=== PATIENT | female | born 1950 | race Caucasian/White ===

== ENCOUNTER → 2016-06-08 | Outpatient (CLI) | payer MEDICARE ==
[2016-06-08 14:45] LABS: Anion Gap 20 mmol/L; Blood Urea Nitrogen 36 mg/dL (7-17); Calcium 9.1 mg/dL (8.4-10.2); Carbon Dioxide 29 mmol/L (22-30); Chloride 96 mmol/L (98-107); Glucose 158 mg/dL (74-99); Non-African American GFR(MDRD) 54 (>60 ml/min/1.73 sqM); Sodium 145 mmol/L (137-145)
== END | disposition home or self-care (01) ==
LOC: LABWHC1 13:57
PROVIDERS: ATTEND Internal Medicine Nephrology
DX: N18.2 Chronic kidney disease, stage 2 (mild) (principal)
CPT/HCPCS: 36415; 80048

== ENCOUNTER → 2016-09-05 | Outpatient (CLI) | payer MEDICARE ==
[2016-09-05 10:09] LABS: Appearance,Urine Clear (Clear); Bilirubin,Urine Negative (Negative); Glucose,Urine (UA) Negative (Negative); Ketones,Urine Negative (Negative); Leukocyte Esterase,Urine Moderate (Negative); Nitrite,Urine Negative (Negative); PH, Urine 5.5 (5.0-8.0); Particle Count 2018; Protein,Urine Trace (Negative); RBC,Urine 1 /hpf (0-5); Specific Gravity,Urine 1.016 (1.001-1.035); Squamous Epithelial Cell,Urine 2 /hpf (0-4); UA Billing (MACRO vs. MICRO) MICRO; Urobilinogen,Urine <2.0 mg/dL (<2.0); WBC,Urine 13 /hpf (0-5)
[2016-09-05 10:19] LABS: Basophils # (A) 0.1 k/uL (0-0.2); Basophils % (A) 1 %; CH 30.3; CHCM 32.5; Eosinophils # (A) 0.4 k/uL (0-0.7); Eosinophils % (A) 5 %; HCT 38.1 % (34.0-46.0); HDW 2.62; HGB 12.3 gm/dL (11.4-16.0); Luc # (Auto) 0.23; Luc % (Auto) 3; Lymphocytes # (A) 2.3 k/uL (1.0-4.8); Lymphocytes % (A) 28 %; MCH 30.3 pg (25.0-35.0); MCHC 32.3 g/dL (31.0-37.0); MCV 93.8 fL (80.0-100.0); Mean Platelet Volume 7.1; Monocytes # (A) 0.4 k/uL (0-1.0); Monocytes % (A) 5 %; Neutrophils # (A) 4.7 k/uL (1.3-7.7); Neutrophils % (A) 58 %; RBC 4.07 m/uL (3.80-5.40); RDW 14.1 % (11.5-15.5); WBC 8.1 k/uL (3.8-10.6); WBC (Perox) 8.78
[2016-09-05 13:19] LABS: ALT 31 U/L (9-52); AST 22 U/L (14-36); Alkaline Phosphatase 75 U/L (38-126); Anion Gap 13 mmol/L; Blood Urea Nitrogen 32 mg/dL (7-17); Calcium 9.3 mg/dL (8.4-10.2); Carbon Dioxide 28 mmol/L (22-30); Chloride 101 mmol/L (98-107); Cholesterol 112 mg/dL (<200); Glucose 141 mg/dL (74-99); HDL Cholesterol 39 mg/dL (40-60); Iron 63 ug/dL (37-170); Magnesium 2.4 mg/dL (1.6-2.3); Non-African American GFR(MDRD) 55 (>60 ml/min/1.73 sqM); Phosphorous 4.7 mg/dL (2.5-4.5); Potassium 4.2 mmol/L (3.5-5.1); Sodium 142 mmol/L (137-145); Total Bilirubin 0.6 mg/dL (0.2-1.3); Total Protein 6.8 g/dL (6.3-8.2); Triglycerides 247 mg/dL (<150)
[2016-09-05 13:29] LABS: % Iron Saturation 19.3 % (20-50); Total Iron Binding Capacity 327 ug/dL (265-497)
== END | disposition home or self-care (01) ==
LOC: LABWHC1 08:59
PROVIDERS: ATTEND Internal Medicine Nephrology
DX: N18.2 Chronic kidney disease, stage 2 (mild) (principal); D64.9 Anemia, unspecified; E55.9 Vitamin D deficiency, unspecified; N25.81 Secondary hyperparathyroidism of renal origin; M10.9 Gout, unspecified; N39.0 Urinary tract infection, site not specified; E11.65 Type 2 diabetes mellitus with hyperglycemia
CPT/HCPCS: 36415; 80053; 80061; 81001; 82043; 82306; 82728; 83540; 83550; 83735; 83970; 84100; 84550; 85025

== ENCOUNTER → 2016-09-14 | Outpatient (CLI) | payer MEDICARE ==
--- NOTE | 2016-09-14 13:56 | XR ---
EXAMINATION TYPE: XR Hip Complete RT DATE OF EXAM: 09/14/2016 12:36 PM COMPARISON: NONE HISTORY: Pain TECHNIQUE: 2 views submitted FINDINGS: There is no evidence of erosive change or acute fracture. There is axial narrowing of the joint space . Soft tissue ossification adjacent to the greater trochanter which does demonstrate hypertrophic spu r formation. IMPRESSION: 1. No evidence of acute fracture or dislocation. 2. 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 Correlate for femoral acetabular impingement.
== END ==
LOC: RADXRMAIN 12:09
PROVIDERS: ATTEND Family Medicine
DX: M16.11 Unilateral primary osteoarthritis, right hip (principal)
CPT/HCPCS: 73502

== ENCOUNTER → 2016-09-20 | Outpatient (CLI) | payer MEDICARE ==
--- NOTE | 2016-09-20 11:32 | ECHOS ---
DATE OF SERVICE: 09/20/2016 AGE: 66Y SEX: F HT: 61" WT: 228 lbs. Protocol Alonso: X Others: Stress Echo Stage: 1 Dur. of Exercise: 3:00 *Heart Rate Blood Pressure *Rest: 82 Rest: 133/39 * *Max. Achieved: 146 Maximum BP: 181/78 85% PMHR: 130 100% PMHR: 153 *METS: 4.6 INDICATIONS: Chest pain. MEDICATIONS: Lipitor. CLINICAL INFORMATION: Patient is complaining of chest pain, diabetes, hypertension, palpitations, nonsmoker. Resting ECG shows sinus rhythm, rate of 82 beats per minute, ME interval of 0.16, QRS 0.08, normal ST-T waves. Utilizing a standard Alonso protocol, a treadmill test was performed. Patient exercised for a total of 3 minutes, attained a peak heart rate of 146 beats per minute, which is approximately 95% of predicted heart rate without any chest pain or pressure. Frequent PVCs are noted at the peak exertion. Baseline images shows normal thickening and contractility. Postexercise images show improved contractility and thickening consistent with normal stress echocardiogram at low workloads. IMPRESSION: 1. Heart rate appears to be sinus with normal ME, normal QRS, normal ST-T waves. 2. Frequent premature ventricular contractions are noted at peak exertion without any ST segment deviations or symptoms. Normal stress echocardiogram at low workloads, attained a peak metabolic activity equivalent to 4 METS.
== END | disposition home or self-care (01) ==
LOC: RADNMMAIN 09:07
PROVIDERS: ATTEND Family Medicine
DX: R07.9 Chest pain, unspecified (principal)
CPT/HCPCS: 93017; 93350

== ENCOUNTER → 2016-10-06 | Outpatient (CLI) | payer MEDICARE ==
--- NOTE | 2016-10-06 11:20 | MR ---
EXAMINATION TYPE: MR hip RT wo con DATE OF EXAM: 10/06/2016 9:35 AM COMPARISON: Correlation radiographs 09/14/2016 HISTORY: 66-year-old female with right hip pain. TECHNIQUE: Multiplanar, multisequence images of the right hip were obtained without IV contrast. FINDINGS: No evidence for acute fracture or AVN. Symmetric small hip joint effusions. There is mild degenerat venita joint space narrowing at both hips. The sagittal view suggests tear of the anterior superior acet abular labrum. At both hips, there are corticated bone fragments measuring up to 1.9 cm along the lateral facets of the greater trochanter at the attachment site of the lateral gluteus medius fibers. There is fluid si gnal interposed between these fragments and the underlying lateral facets. There is some focal symmet rical atrophy of the gluteus medius. In addition, there is suggestion of a intrasubstance tear of the insertional posterosuperior gluteus medius fibers, right greater than left. Some degenerative changes at the left SI joint. The rectus femoris origins are satisfactory. Mild tendinotic signal at the right hamstrings origin. T he iliopsoas insertions are satisfactory. Symmetric course, caliber, and signal intensity of the sciatic nerves. A couple diverticula are noted within the distal sigmoid. No abnormal fluid collection in the pelvis. IMPRESSION: 1. Mild degenerative joint space narrowing in both hips with degenerative tear of the anterior superi or acetabular labrum on the right. 2. Corticated bone fragments measuring up to 1.9 cm adjacent to the lateral facets of the greater tro chanter. There is fluid interposed between these bone fragments and the greater trochanter. Either ch ronic avulsion fractures of the lateral gluteus medius insertions on both sides or partial insertiona l tears with heterotopic ossification is suspected. 3. Additional intrasubstance tear of the posterosuperior gluteus medius insertions, right greater antoine n left.
== END | disposition home or self-care (01) ==
LOC: RADMRIMAIN 08:33
PROVIDERS: ATTEND Orthopaedic Surgery Sports Medicine
DX: M16.11 Unilateral primary osteoarthritis, right hip (principal); S73.191A Other sprain of right hip, initial encounter

== ENCOUNTER → 2017-02-20 | Outpatient (CLI) | payer MEDICARE ==
[2017-02-20 11:47] LABS: Basophils # (A) 0.1 k/uL (0-0.2); Basophils % (A) 1 %; CH 31.2; CHCM 34.1; Eosinophils # (A) 0.3 k/uL (0-0.7); Eosinophils % (A) 3 %; HCT 40.4 % (34.0-46.0); HDW 2.63; HGB 13.2 gm/dL (11.4-16.0); Luc # (Auto) 0.13; Luc % (Auto) 2; Lymphocytes # (A) 2.4 k/uL (1.0-4.8); Lymphocytes % (A) 30 %; MCH 30.2 pg (25.0-35.0); MCHC 32.7 g/dL (31.0-37.0); MCV 92.2 fL (80.0-100.0); Monocytes # (A) 0.5 k/uL (0-1.0); Monocytes % (A) 6 %; Neutrophils # (A) 4.6 k/uL (1.3-7.7); Neutrophils % (A) 58 %; RBC 4.38 m/uL (3.80-5.40); RDW 15.1 % (11.5-15.5); WBC 7.9 k/uL (3.8-10.6); WBC (Perox) 7.82
[2017-02-20 11:57] LABS: Appearance,Urine Clear (Clear); Bacteria,Urine Rare /hpf; Bilirubin,Urine Negative (Negative); Glucose,Urine (UA) Negative (Negative); Ketones,Urine Negative (Negative); Leukocyte Esterase,Urine Small (Negative); Mucus,Urine Rare /hpf; Nitrite,Urine Negative (Negative); Particle Count 733; Protein,Urine Negative (Negative); Specific Gravity,Urine 1.009 (1.001-1.035); Squamous Epithelial Cell,Urine 1 /hpf (0-4); UA Billing (MACRO vs. MICRO) MICRO; Urobilinogen,Urine <2.0 mg/dL (<2.0); WBC,Urine 4 /hpf (0-5)
[2017-02-20 12:03] LABS: ALT 35 U/L (9-52); AST 22 U/L (14-36); Alkaline Phosphatase 81 U/L (38-126); Anion Gap 10 mmol/L; Blood Urea Nitrogen 30 mg/dL (7-17); Calcium 9.3 mg/dL (8.4-10.2); Carbon Dioxide 31 mmol/L (22-30); Chloride 102 mmol/L (98-107); Cholesterol 108 mg/dL (<200); Glucose 129 mg/dL (74-99); HDL Cholesterol 39 mg/dL (40-60); Magnesium 1.8 mg/dL (1.6-2.3); Non-African American GFR(MDRD) 51 (>60 ml/min/1.73 sqM); Phosphorous 4.1 mg/dL (2.5-4.5); Potassium 4.2 mmol/L (3.5-5.1); Sodium 143 mmol/L (137-145); Total Bilirubin 0.5 mg/dL (0.2-1.3); Total Protein 7.3 g/dL (6.3-8.2); Uric Acid 5.7 mg/dL (3.7-7.4)
[2017-02-20 15:52] LABS: Iron Saturation 19.06 (12.00-45.00)
[2017-02-20 17:17] LABS: Urine Creatinine 67.4 mg/dL
== END | disposition home or self-care (01) ==
LOC: LABWHC1 11:19
PROVIDERS: ATTEND Internal Medicine Nephrology
DX: N18.2 Chronic kidney disease, stage 2 (mild) (principal); E21.3 Hyperparathyroidism, unspecified; D64.9 Anemia, unspecified; E55.9 Vitamin D deficiency, unspecified; M10.9 Gout, unspecified; N39.0 Urinary tract infection, site not specified; E11.65 Type 2 diabetes mellitus with hyperglycemia; E03.8 Other specified hypothyroidism
CPT/HCPCS: 36415; 80053; 80061; 81001; 82043; 82306; 82570; 82728; 83540; 83550; 83735; 83970; 84100; 84443; 84550; 85025

== ENCOUNTER → 2017-07-03 | Outpatient (CLI) | payer MEDICARE ==
[2017-07-03 11:53] LABS: Basophils # (A) 0.1 k/uL (0-0.2); Basophils % (A) 1 %; Eosinophils # (A) 0.4 k/uL (0-0.7); Eosinophils % (A) 4 %; HCT 40.4 % (34.0-46.0); Lymphocytes # (A) 2.7 k/uL (1.0-4.8); Lymphocytes % (A) 31 %; MCH 29.7 pg (25.0-35.0); MCHC 32.1 g/dL (31.0-37.0); MCV 92.6 fL (80.0-100.0); Mean Platelet Volume 7.3; Monocytes # (A) 0.4 k/uL (0-1.0); Monocytes % (A) 5 %; Neutrophils # (A) 4.7 k/uL (1.3-7.7); Neutrophils % (A) 56 %; Platelet Count 231 k/uL (150-450); RBC 4.37 m/uL (3.80-5.40); RDW 13.8 % (11.5-15.5); WBC 8.5 k/uL (3.8-10.6)
[2017-07-03 11:57] LABS: Appearance,Urine Clear (Clear); Bilirubin,Urine Negative (Negative); Blood,Urine Negative (Negative); Color,Urine Colorless; Glucose,Urine (UA) Negative (Negative); Ketones,Urine Negative (Negative); Leukocyte Esterase,Urine Negative (Negative); Nitrite,Urine Negative (Negative); PH, Urine 6.5 (5.0-8.0); Protein,Urine Negative (Negative); Specific Gravity,Urine 1.002 (1.001-1.035); Urobilinogen,Urine <2.0 mg/dL (<2.0)
[2017-07-03 12:14] LABS: Anion Gap 14 mmol/L; Blood Urea Nitrogen 27 mg/dL (7-17); Calcium 9.5 mg/dL (8.4-10.2); Carbon Dioxide 32 mmol/L (22-30); Chloride 97 mmol/L (98-107); Glucose 137 mg/dL (74-99); Magnesium 1.8 mg/dL (1.6-2.3); Phosphorus 4.5 mg/dL (2.5-4.5); Potassium 3.9 mmol/L (3.5-5.1); Sodium 143 mmol/L (137-145); Uric Acid 5.7 mg/dL (3.7-7.4)
[2017-07-03 19:24] LABS: Iron Saturation 19.63 (12.00-45.00)
[2017-07-03 19:32] LABS: Vitamin D 25 Hydroxy 38.8 ng/mL (30.0-100.0)
[2017-07-03 21:32] LABS: Parathyroid Hormone Intact 123.5 pg/mL (14.0-72.0)
== END | disposition home or self-care (01) ==
LOC: LABWHC1 11:06
PROVIDERS: ATTEND Internal Medicine Nephrology
DX: D64.9 Anemia, unspecified (principal); E55.9 Vitamin D deficiency, unspecified; E21.3 Hyperparathyroidism, unspecified; M10.9 Gout, unspecified; N39.0 Urinary tract infection, site not specified; N18.2 Chronic kidney disease, stage 2 (mild)
CPT/HCPCS: 36415; 80048; 81003; 82306; 82728; 83540; 83550; 83735; 83970; 84100; 84550; 85025

== ENCOUNTER 2017-07-25 07:19 | Day surgery (SDC) | payer MEDICARE, OTHER ==
[2017-07-19 14:53] VITALS: BMI 40.8
[~2017-07-25 07:19] MED LIST: LACTATED RINGERS 1,000 ML IV SCH; Pre Op ABX Message 1 EACH MISC MISCELLANE ONE
[2017-07-25] MEDS: CYCLOPENTOLATE 1% OPHTH SOLN 2 ML BTL OP ONE ×3 (08:11→08:37)
[2017-07-25] MEDS: FLURBIPROFEN 0.03% OPHTH DROPS 2.5 ML BTL BOTH EYES SCH ×3 (08:17→08:40)
[2017-07-25 08:18] VITALS: TEMP 98.2
[2017-07-25] MEDS: PHENYLEPHRINE 10% OPHTH DROPS 5 ML BTL OP ONE ×3 (08:20→08:45)
[2017-07-25 08:45] LABS: Glucose,Whole Blood 134 mg/dL (75-99)
[2017-07-25] MEDS ORDERED: fentaNYL (PF) 50 MCG/ML 2 ML AMP ONE (08:54)
[2017-07-25] MEDS ORDERED: PROPOFOL 10 MG/ML 20 ML VIAL IV ONE (08:54)
[2017-07-25] MEDS ORDERED: MIDAZOLAM 2 MG/2 ML VIAL ONE (08:54)
[2017-07-25] MEDS ORDERED: TETRACAINE 0.5% OPHTH (PF) DROPS 4 ML BTL LEFT EYE ONE (08:55)
[2017-07-25] MEDS ORDERED: EPINEPHrine (PF) 0.5 ML in BALANCED SALT IRRIG SOLN COMB2 500 ML IRRIGATION ONE (08:59)
[2017-07-25] MEDS ORDERED: HYALURONATE SODIUM INTRAOCULAR 1 EACH SYRINGE (10MG/ML) INTRAOCULA ONE (09:05)
[2017-07-25] MEDS ORDERED: BALANCED SALT IRRIG SOLN COMB2 15 ML IRRIG.SOLN INTRAOCULA ONE (09:05)
--- NOTE | 2017-07-25 09:19 | P.OP ---
Date of Procedure: 07/25/17 Procedure(s) Performed: PREOPERATIVE DIAGNOSIS: Cataract, left eye. POSTOPERATIVE DIAGNOSIS: Cataract, left eye. OPERATION: Phacoemulsification cataract, left eye. DESCRIPTION OF PROCEDURE: The patient was taken to the preoperative holding area. Intravenous Propofol was given so as to bring about adequate sedation. The following mixture was given for local anesthesia: 5 mL of 2% lidocaine, 5 mL of 0.75% Marcaine, and 1 mL of Wydase. Approximately 4 mL was injected in the retrobulbar space of the surgical eye. Additional 1 mL was then directed to the temporal area of the surgical eye. This was performed to allow adequate neurological block of the facial muscles. The patient was revived and then taken into the operative room. The patient was prepped and draped in the usual sterile manner for the operative eye. A lid speculum was put into position. The conjunctiva was resected back from the limbus in the 12 o'clock position. Bleeding was controlled with electrocautery. A #69 blade was then used and a half-thickness scleral incision approximately 1-mm posterior to the limbus was made on bare sclera. This was shelved in the clear cornea using a crescent knife. Next a 15-degree blade was used to make a stab incision at the 3 o' clock position at the corneolimbal interface. Keratome blade was then used and the superior wound was extended into the anterior chamber. Viscoelastic was injected into the anterior chamber and to maintain its form. Next, a cystotome was used and a continuous anterior capsulotomy was made without difficulty. Hydrodissection using a blunt cannula and BSS was performed. Phaco probe was then employed and a groove extending from 12 to 6 o'clock in the lens was created. A Dino wand was used through the stab incision so as to perform a divide and conquer technique. Next an irrigation aspiration probe was utilized and any residual cortex was removed from the eye. Again, viscoelastic was injected into the anterior chamber. An Savage posterior chamber lens implant was placed in the cartridge and injected into the anterior chamber without difficulty. The [employer] hook was utilized to spin the lens into position and this was again performed without any difficulty. The irrigation and aspiration probe was again employed and any residual viscoelastic was removed from the eye. Then BSS was injected into the limbal stab incision and the anterior chamber re-inflated. The conjunctiva was reapproximated using electrocautery. One drop of 0.25% Timoptic was placed over the corneal along with TobraDex ophthalmic ointment. Two sterile patches and a Byrd eye shield were taped into position. The patient was transported to the recovery room in stable condition. Pathology: none sent Condition: stable Disposition: same day
[2017-07-25 09:42] VITALS: BP 147/74; PULSE 55; RESP 18
[2017-07-25] MEDS ORDERED: GENTAMICIN/PREDNISOL AC OPHTH OINT 3.5GM OPHTHALMIC ONE (23:00)
[2017-07-25] MEDS ORDERED: BUPIVACAINE (PF) 0.75% 5 ML, HYALURONIDASE, HUMAN RECOMB 150 UNIT, LIDOCAINE 2% (PF) 10... MISCELLANE ONE ×3 (23:00)
[2017-07-25] MEDS ORDERED: TIMOLOL 0.5% OPHTH DROPS 5 ML BTL OP ONE (23:00)
== END 2017-07-25 09:51 | disposition home or self-care (01) ==
LOC: OR 07:19
PROVIDERS: ATTEND Ophthalmology
DX: H25.12 Age-related nuclear cataract, left eye (principal); E11.9 Type 2 diabetes mellitus without complications; I10 Essential (primary) hypertension; M10.9 Gout, unspecified; E07.9 Disorder of thyroid, unspecified; N28.9 Disorder of kidney and ureter, unspecified; Z79.84 Long term (current) use of oral hypoglycemic drugs; Z79.890 Hormone replacement therapy; Z79.891 Long term (current) use of opiate analgesic; Z79.82 Long term (current) use of aspirin; Z79.899 Other long term (current) drug therapy; Z88.6 Allergy status to analgesic agent; Z88.1 Allergy status to other antibiotic agents; Z88.2 Allergy status to sulfonamides; Z91.048 Other nonmedicinal substance allergy status; Z98.51 Tubal ligation status
CPT/HCPCS: 66984; V2787; C1780; J2250; J3470; J2001; J0171; J3010; J2704

== ENCOUNTER → 2017-08-08 | Outpatient (CLI) | payer MEDICARE ==
[2017-08-08 12:25] LABS: Basophils # (A) 0.1 k/uL (0-0.2); Basophils % (A) 1 %; Eosinophils # (A) 0.3 k/uL (0-0.7); Eosinophils % (A) 3 %; HGB 13.6 gm/dL (11.4-16.0); Lymphocytes # (A) 2.7 k/uL (1.0-4.8); Lymphocytes % (A) 32 %; MCH 30.6 pg (25.0-35.0); MCHC 33.9 g/dL (31.0-37.0); MCV 90.1 fL (80.0-100.0); Mean Platelet Volume 7.5; Monocytes # (A) 0.5 k/uL (0-1.0); Monocytes % (A) 6 %; Neutrophils # (A) 4.7 k/uL (1.3-7.7); Neutrophils % (A) 56 %; Platelet Count 240 k/uL (150-450); RBC 4.44 m/uL (3.80-5.40); RDW 13.9 % (11.5-15.5); WBC 8.5 k/uL (3.8-10.6)
[2017-08-08 12:35] LABS: Appearance,Urine Clear (Clear); Bilirubin,Urine Negative (Negative); Blood,Urine Negative (Negative); Calcium 9.7 mg/dL (8.4-10.2); Color,Urine Light Yellow; Glucose,Urine (UA) Negative (Negative); Ketones,Urine Negative (Negative); Leukocyte Esterase,Urine Small (Negative); Potassium 4.4 mmol/L (3.5-5.1); Protein,Urine Negative (Negative); Specific Gravity,Urine 1.008 (1.001-1.035); Squamous Epithelial Cell,Urine <1 /hpf (0-4); Uric Acid 5.2 mg/dL (3.7-7.4); Urobilinogen,Urine <2.0 mg/dL (<2.0); WBC,Urine 3 /hpf (0-5)
[2017-08-08 16:44] LABS: Iron Saturation 12.79 (12.00-45.00)
[2017-08-08 17:47] LABS: Parathyroid Hormone Intact 113.4 pg/mL (14.0-72.0)
== END | disposition home or self-care (01) ==
LOC: LABWHC1 11:27
PROVIDERS: ATTEND Internal Medicine Nephrology
DX: N39.0 Urinary tract infection, site not specified (principal); M10.9 Gout, unspecified; N18.2 Chronic kidney disease, stage 2 (mild); D63.1 Anemia in chronic kidney disease; E21.3 Hyperparathyroidism, unspecified
CPT/HCPCS: 36415; 80048; 81001; 82728; 83540; 83550; 83735; 83970; 84100; 84550; 85025

== ENCOUNTER 2017-09-19 09:08 | Day surgery (SDC) | payer MEDICARE ==
[2017-09-12 12:02] VITALS: BMI 40.7
[~2017-09-19 09:08] MED LIST changes: +MIDAZOLAM 2 MG/2 ML VIAL IV PRN
[2017-09-19 10:13] VITALS: TEMP 98.1
[2017-09-19] MEDS: FLURBIPROFEN 0.03% OPHTH DROPS 2.5 ML BTL OP ONE ×3 (10:13→10:32)
[2017-09-19] MEDS: CYCLOPENTOLATE 1% OPHTH SOLN 2 ML BTL OP ONE ×3 (10:16→10:37)
[2017-09-19] MEDS: PHENYLEPHRINE 10% OPHTH DROPS 5 ML BTL OP ONE ×3 (10:19→10:40)
[2017-09-19] MEDS ORDERED: LIDOCAINE 1% 20 ML VIAL (10MG/ML) FOR IV START INTRADERMA ONE (10:26)
[2017-09-19 10:37] LABS: Glucose,Whole Blood 104 mg/dL (75-99)
[2017-09-19] MEDS ORDERED: PROPOFOL 10 MG/ML 20 ML VIAL IV ONE (10:50)
[2017-09-19] MEDS ORDERED: EPINEPHrine (PF) 0.5 ML in BALANCED SALT IRRIG SOLN COMB2 500 ML IRRIGATION ONE (10:57)
[2017-09-19] MEDS ORDERED: BALANCED SALT IRRIG SOLN COMB2 15 ML IRRIG.SOLN IRRIGATION ONE (11:01)
[2017-09-19] MEDS ORDERED: TETRACAINE 0.5% OPHTH (PF) DROPS 4 ML BTL RIGHT EYE ONE (11:01)
[2017-09-19] MEDS ORDERED: HYALURONATE SODIUM INTRAOCULAR 1 EACH SYRINGE (10MG/ML) INTRAOCULA ONE (11:01)
[2017-09-19] MEDS ORDERED: TIMOLOL 0.5% OPHTH SOLN (PF) 0.2 ML DROPERETTE RIGHT EYE ONE (11:01)
--- NOTE | 2017-09-19 11:16 | P.OP ---
Date of Procedure: 09/19/17 Procedure(s) Performed: PREOPERATIVE DIAGNOSIS: Cataract, right eye. POSTOPERATIVE DIAGNOSIS: Cataract, right eye. OPERATION: Phacoemulsification cataract, right eye. DESCRIPTION OF PROCEDURE: The patient was taken to the preoperative holding area. Intravenous Propofol was given so as to bring about adequate sedation. The following mixture was given for local anesthesia: 5 mL of 2% lidocaine, 5 mL of 0.75% Marcaine, and 1 mL of Wydase. Approximately 4 mL was injected in the retrobulbar space of the surgical eye. Additional 1 mL was then directed to the temporal area of the surgical eye. This was performed to allow adequate neurological block of the facial muscles. The patient was revived and then taken into the operative room. The patient was prepped and draped in the usual sterile manner for the operative eye. A lid speculum was put into position. The conjunctiva was resected back from the limbus in the 12 o'clock position. Bleeding was controlled with electrocautery. A #69 blade was then used and a half-thickness scleral incision approximately 1-mm posterior to the limbus was made on bare sclera. This was shelved in the clear cornea using a crescent knife. The steep axis of astigmatism was marked using a pre-inked corneal marking device. Next a 15-degree blade was used to make a stab incision at the 3 o'clock position at the corneolimbal interface. Keratome blade was then used and the superior wound was extended into the anterior chamber. Viscoelastic was injected into the anterior chamber and to maintain its form. Next, a cystotome was used and a continuous anterior capsulotomy was made without difficulty. Hydrodissection using a blunt cannula and BSS was performed. Phaco probe was then employed and a groove extending from 12 to 6 o' clock in the lens was created. A Dino wand was used through the stab incision so as to perform a divide and conquer technique. Next an irrigation aspiration probe was utilized and any residual cortex was removed from the eye. Again, viscoelastic was injected into the anterior chamber. An Savage toric posterior chamber lens implant was placed in the cartridge and injected into the anterior chamber without difficulty. The Sinskey hook was utilized to spin the lens into position and this was again performed without any difficulty. The irrigation and aspiration probe was again employed and any residual viscoelastic was removed from the eye. Then BSS was injected into the limbal stab incision and the anterior chamber re-inflated. The conjunctiva was reapproximated using electrocautery. One drop of 0.25% Timoptic was placed over the corneal along with TobraDex ophthalmic ointment. Two sterile patches and a Byrd eye shield were taped into position. The patient was transported to the recovery room in stable condition. Pathology: none sent Condition: stable Disposition: same day
[2017-09-19 11:22] VITALS: RESP 16
[2017-09-19 11:34] VITALS: BP 150/71; PULSE 68
[2017-09-19] MEDS ORDERED: BUPIVACAINE (PF) 0.75% 5 ML, HYALURONIDASE, HUMAN RECOMB 150 UNIT, LIDOCAINE 2% (PF) 10... MISCELLANE ONE ×3 (23:00)
[2017-09-19] MEDS ORDERED: TIMOLOL 0.5% OPHTH DROPS 5 ML BTL OP ONE (23:00)
[2017-09-19] MEDS ORDERED: GENTAMICIN/PREDNISOL AC OPHTH OINT 3.5GM OPHTHALMIC ONE (23:00)
--- NOTE | 2017-09-21 11:48 | CDI ---
Date: 09/21/17 CDS/Diabetes Nurse Name: Herminia Chacon Phone: If any questions, call Selina Fraga Skylights Assembler at [phone] Patient Name: Jenelle Gresham Admit Date: 09/19/17 Discharge Date: 09/19/17 ATTENTION: The [facility] Coding Staff appreciate your assistance in clarifying documentation. Please respond to the clarification below the line at the bottom and electronically sign. The [facility] Coding staff will review the response and follow-up if needed. Please note: Queries are made part of the Legal Health Record. If you have any questions, please contact the Skylights Assembler. Dear Dr. Sabillon, Please provide clarification as to the type of cataracts. ICD-10-CM states that a patient with cataracts and diabetes is coded as diabetic cataracts unless there is documentation to the contrary stating that the cataracts are not diabetic. Also, there is a diagnosis on the Fax Boarding form/Pre-op orders as [id number] Age related nuclear cataract right eye which conflicts with the diagnosis on the H&P and Operative report. Pleas clarify the type of cataracts. Thank you for your kind consideration. 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 MTDD
== END 2017-09-19 12:02 | disposition home or self-care (01) ==
LOC: OR 09:08
PROVIDERS: ATTEND Ophthalmology
DX: E11.36 Type 2 diabetes mellitus with diabetic cataract (principal); Z79.84 Long term (current) use of oral hypoglycemic drugs; I10 Essential (primary) hypertension; M10.9 Gout, unspecified; E78.5 Hyperlipidemia, unspecified; E07.9 Disorder of thyroid, unspecified; Z79.891 Long term (current) use of opiate analgesic; Z79.899 Other long term (current) drug therapy; Z88.6 Allergy status to analgesic agent; Z88.1 Allergy status to other antibiotic agents; Z88.2 Allergy status to sulfonamides; Z91.09 Other allergy status, other than to drugs and biological substances
CPT/HCPCS: 66984; V2787; C1780; J3470; J2001; J0171; J2704

== ENCOUNTER → 2017-09-25 | Outpatient (CLI) | payer MEDICARE ==
[2017-09-25 10:30] LABS: Albumin 4.2 g/dL (3.5-5.0); Calcium 9.2 mg/dL (8.4-10.2); Potassium 4.4 mmol/L (3.5-5.1); Total Bilirubin 0.7 mg/dL (0.2-1.3); Total Protein 6.7 g/dL (6.3-8.2)
[2017-09-25 18:54] LABS: Hemoglobin A1C 6.7 % (4.0-6.0)
== END | disposition home or self-care (01) ==
LOC: LABWHC1 09:10
PROVIDERS: ATTEND Internal Medicine Interventional Cardiology
DX: E78.2 Mixed hyperlipidemia (principal); E03.8 Other specified hypothyroidism; E11.65 Type 2 diabetes mellitus with hyperglycemia
CPT/HCPCS: 36415; 80053; 80061; 82043; 82570; 83036; 84443

== ENCOUNTER → 2018-02-06 | Outpatient (CLI) | payer MEDICARE ==
[2018-02-06 11:36] LABS: Basophils # (A) 0.1 k/uL (0-0.2); Basophils % (A) 1 %; Eosinophils # (A) 0.3 k/uL (0-0.7); Eosinophils % (A) 4 %; HCT 40.3 % (34.0-46.0); HGB 13.1 gm/dL (11.4-16.0); Lymphocytes # (A) 2.6 k/uL (1.0-4.8); Lymphocytes % (A) 34 %; MCH 29.7 pg (25.0-35.0); MCHC 32.4 g/dL (31.0-37.0); MCV 91.8 fL (80.0-100.0); Mean Platelet Volume 7.3; Monocytes # (A) 0.3 k/uL (0-1.0); Monocytes % (A) 4 %; Neutrophils # (A) 4.2 k/uL (1.3-7.7); Neutrophils % (A) 56 %; Platelet Count 263 k/uL (150-450); RBC 4.39 m/uL (3.80-5.40); WBC 7.6 k/uL (3.8-10.6)
[2018-02-06 11:39] LABS: Appearance,Urine Clear (Clear); Bilirubin,Urine Negative (Negative); Blood,Urine Negative (Negative); Color,Urine Light Yellow; Glucose,Urine (UA) Negative (Negative); Ketones,Urine Negative (Negative); Leukocyte Esterase,Urine Negative (Negative); Nitrite,Urine Negative (Negative); PH, Urine 6.5 (5.0-8.0); Protein,Urine Negative (Negative); Specific Gravity,Urine 1.007 (1.001-1.035); Urobilinogen,Urine <2.0 mg/dL (<2.0)
[2018-02-06 11:51] LABS: Calcium 9.3 mg/dL (8.4-10.2); Magnesium 2.1 mg/dL (1.6-2.3); Phosphorus 4.2 mg/dL (2.5-4.5); Potassium 4.4 mmol/L (3.5-5.1); Uric Acid 5.7 mg/dL (3.7-7.4)
[2018-02-06 16:41] LABS: Parathyroid Hormone Intact 139.2 pg/mL (14.0-72.0)
[2018-02-06 16:53] LABS: Iron Saturation 26.1 (12.00-45.00)
== END | disposition home or self-care (01) ==
LOC: LABWHC1 11:05
PROVIDERS: ATTEND Internal Medicine Nephrology
DX: N18.2 Chronic kidney disease, stage 2 (mild) (principal); D63.1 Anemia in chronic kidney disease; M10.9 Gout, unspecified; N39.0 Urinary tract infection, site not specified
CPT/HCPCS: 36415; 80048; 81003; 82306; 82728; 83540; 83550; 83735; 83970; 84100; 84550; 85025

== ENCOUNTER → 2018-05-14 | Outpatient (CLI) | payer MEDICARE ==
[2018-05-14 17:17] LABS: Albumin 4.4 g/dL (3.80-4.90); Albumin/Globulin Ratio 2.44 (1.20-2.10); Anion Gap 6.8 mmol/L (4.00-12.00); Calcium 9.3 mg/dL (8.7-10.3); Carbon Dioxide 31.2 mmol/L (21.6-31.8); Globulin 1.8 g/dL (2.1-3.7); LDL Cholesterol,Calculated 64.4 mg/dL (0.0-131.0); Potassium 4.5 mmol/L (3.5-5.5); Total Bilirubin 0.4 mg/dL (0.2-1.2); Total Protein 6.2 g/dL (6.2-8.2); VLDL Calculation 25.6 mg/dL (5.00-40.00)
[2018-05-14 17:48] LABS: Hepatitis C IgG Antibody Non-Reactive (Non-Reactive)
[2018-05-14 18:15] LABS: Hemoglobin A1C 6.4 % (4.0-6.0)
== END | disposition home or self-care (01) ==
LOC: LABWHC1 10:04
PROVIDERS: ATTEND Internal Medicine Endocrinology, Diabetes & Metabolism
DX: E11.65 Type 2 diabetes mellitus with hyperglycemia (principal); Z13.9 Encounter for screening, unspecified
CPT/HCPCS: 36415; 80053; 80061; 82043; 82570; 82607; 83036; 84443; 86803

== ENCOUNTER → 2018-06-28 | Outpatient (CLI) | payer MEDICARE ==
--- NOTE | 2018-06-28 16:50 | BD ---
EXAMINATION TYPE: Axial Bone Density DATE OF EXAM: 06/28/2018 COMPARISON: NONE CLINICAL HISTORY: Height: 60 inches Weight: 213 FRAX RISK QUESTIONS: Alcohol (3 or more units per day): no Family History (Parent hip fracture): no Glucocorticoids (More than 3mos): no (Ex: prednisone, prednisolone, methylprednisolone, dexamethasone, and hydrocortisone). History of Fracture in Adulthood: no Secondary Osteoporosis: 1. Type 1 Diabetes: no, type II 2. Hyperthyroidism: no 3. Menopause before 45: no 4. Malnutrition: no 5. Chronic liver disease: no Rheumatoid Arthritis: unsure Current Tobacco Use: no RISK FACTORS HISTORY OF: History of Wrist Fracture: no Surgery to Wrist (right/left): both When: for carpal tunnel Family History of Osteoporosis: possibly sister Active: yes Diet low in dairy products/other sources of calcium: no Postmenopausal woman: yes Take estrogen and/or progesterone medications: not now How long:hormonal contraceptives about 20 years Lost more than 2 inches in height since high school: yes Frequent falls: no Poor Health: no Hyperparathyroidism: unsure Adrenal Insufficiency: no MEDICATIONS: Prednisone or other steroids: no Thyroid Medications: yes Which medication: Synthroid How Long: over 20 years Osteoporosis Medications: no Additional Medications: Blood pressure meds, Glucophage, Lipitor, Bumex, Allopurinol, generic potassi um, iron, Tramadol, calcium, VitD2, aspirin, Carisa, fish oil, magnesium Additional History: removal part of parathyroid; diabetes EXAM MEASUREMENTS: Bone mineral densitometry was performed using the [employer] System. Bone mineral density as measured about the Lumbar spine is: ----- L1-L4(G/cm2): 1.383 T Score Values are as follows: ----- L2: 2.3 ----- L3: 1.6 ----- L4: 1.6 ----- L1-L4: 1.7 Bone mineral density has: Increased 4.0% since study of: 06/12/2002 (lumbar spine not imaged [id number] study at a physician office) in 2007)( Bone mineral density about the R hip (g/cm2): 0.865 Bone mineral density about the L hip (g/cm2): 0.852 T Score values are as follows: -----R Neck: -1.2 -----L Neck: -1.3 -----R Total: -0.1 -----L Total: 0.0 Bone mineral density has: Decreased -8.1% since study of: 07/04/2007 (2016 study at a physician offic e) IMPRESSION: Osteopenia (T Score between -2.5 and -1). There is slightly increased risk of fracture and the patient may be considered for treatment. Re-Screen 2-5 years. NOTE: T-SCORE=SD OF THE YOUNG ADULT MEAN.
== END | disposition home or self-care (01) ==
LOC: RADBDWWP 13:12
PROVIDERS: ATTEND Family Medicine
DX: M85.80 Other specified disorders of bone density and structure, unspecified site (principal); Z78.0 Asymptomatic menopausal state
CPT/HCPCS: 77080

== ENCOUNTER → 2018-09-03 | Outpatient (CLI) | payer MEDICARE ==
[2018-09-03 11:48] LABS: Basophils # (A) 0.1 k/uL (0-0.2); Basophils % (A) 1 %; Eosinophils # (A) 0.4 k/uL (0-0.7); Eosinophils % (A) 4 %; HCT 39.2 % (34.0-46.0); Lymphocytes # (A) 2.5 k/uL (1.0-4.8); Lymphocytes % (A) 30 %; MCH 29.6 pg (25.0-35.0); MCHC 33.1 g/dL (31.0-37.0); MCV 89.5 fL (80.0-100.0); Mean Platelet Volume 7.7; Monocytes # (A) 0.5 k/uL (0-1.0); Monocytes % (A) 6 %; Neutrophils # (A) 4.8 k/uL (1.3-7.7); Neutrophils % (A) 58 %; Platelet Count 251 k/uL (150-450); RBC 4.39 m/uL (3.80-5.40); RDW 14.6 % (11.5-15.5); WBC 8.4 k/uL (3.8-10.6)
[2018-09-03 12:39] LABS: Appearance,Urine Clear (Clear); Bilirubin,Urine Negative (Negative); Blood,Urine Negative (Negative); Color,Urine Colorless; Glucose,Urine (UA) Negative (Negative); Ketones,Urine Negative (Negative); Leukocyte Esterase,Urine Negative (Negative); Nitrite,Urine Negative (Negative); Protein,Urine Negative (Negative); Specific Gravity,Urine 1.006 (1.001-1.035); Urobilinogen,Urine <2.0 mg/dL (<2.0)
[2018-09-03 16:23] LABS: Iron Saturation 16.34 (12.00-45.00)
[2018-09-03 16:24] LABS: Albumin 4.7 g/dL (3.80-4.90); Calcium 9.5 mg/dL (8.7-10.3); Magnesium 2.3 mg/dL (1.5-2.4); Potassium 4.2 mmol/L (3.5-5.5); Uric Acid 5.2 mg/dL (2.9-7.7)
[2018-09-03 16:25] LABS: Phosphorus 5.2 mg/dL (2.4-5.1)
[2018-09-03 16:31] LABS: Vitamin D 25 Hydroxy 56.3 ng/mL (30.0-100.0)
[2018-09-03 18:06] LABS: Parathyroid Hormone Intact 128.8 pg/mL (14.0-72.0)
[2018-09-03 20:23] LABS: Creatinine,Urine Random 13.5 mg/dL
[2018-09-03 20:24] LABS: Total Protein,Urine Random 7.6 mg/dL (0.0-13.5)
== END ==
LOC: LABWHC1 10:46
PROVIDERS: ATTEND Internal Medicine Nephrology
DX: N39.0 Urinary tract infection, site not specified (principal); M10.9 Gout, unspecified; E21.3 Hyperparathyroidism, unspecified; D63.1 Anemia in chronic kidney disease; N18.3 Chronic kidney disease, stage 3 (moderate); R80.9 Proteinuria, unspecified
CPT/HCPCS: 36415; 80048; 81003; 82040; 82306; 82570; 82728; 83540; 83550; 83735; 83970; 84100; 84156; 84550; 85025

== ENCOUNTER → 2018-09-25 | Outpatient (CLI) | payer MEDICARE ==
[2018-09-25 20:27] LABS: Potassium 3.7 mmol/L (3.5-5.5)
== END | disposition home or self-care (01) ==
LOC: LABWHC1 11:41
PROVIDERS: ATTEND Internal Medicine Nephrology
DX: N18.3 Chronic kidney disease, stage 3 (moderate) (principal)
CPT/HCPCS: 36415; 80048

== ENCOUNTER → 2018-11-19 | Outpatient (CLI) | payer MEDICARE ==
[2018-11-19 13:57] LABS: Basophils # (A) 0.1 k/uL (0-0.2); Basophils % (A) 1 %; Eosinophils # (A) 0.4 k/uL (0-0.7); Eosinophils % (A) 4 %; HCT 39.3 % (34.0-46.0); HGB 12.7 gm/dL (11.4-16.0); Lymphocytes # (A) 2.9 k/uL (1.0-4.8); Lymphocytes % (A) 29 %; MCH 29.3 pg (25.0-35.0); MCHC 32.2 g/dL (31.0-37.0); Mean Platelet Volume 7.5; Monocytes # (A) 0.5 k/uL (0-1.0); Monocytes % (A) 5 %; Neutrophils # (A) 5.8 k/uL (1.3-7.7); Neutrophils % (A) 59 %; Platelet Count 268 k/uL (150-450); RBC 4.32 m/uL (3.80-5.40); WBC 9.8 k/uL (3.8-10.6)
[2018-11-19 14:03] LABS: Appearance,Urine Clear (Clear); Bilirubin,Urine Negative (Negative); Blood,Urine Negative (Negative); Color,Urine Colorless; Glucose,Urine (UA) Negative (Negative); Ketones,Urine Negative (Negative); Leukocyte Esterase,Urine Trace (Negative); Mucus,Urine Rare /hpf; Nitrite,Urine Negative (Negative); Protein,Urine Negative (Negative); RBC,Urine <1 /hpf (0-5); Specific Gravity,Urine 1.005 (1.001-1.035); Urobilinogen,Urine <2.0 mg/dL (<2.0); WBC,Urine 3 /hpf (0-5)
[2018-11-19 18:45] LABS: Iron Saturation 17.17 (12.00-45.00)
[2018-11-19 18:57] LABS: African American GFR (CKD) 53.4 (60.0-200.0); Albumin 4.5 g/dL (3.80-4.90); Anion Gap 10.9 mmol/L (4.00-12.00); BUN/Creat Ratio 20.83 Ratio (12.00-20.00); Carbon Dioxide 32.1 mmol/L (21.6-31.8); Magnesium 2.2 mg/dL (1.5-2.4); Potassium 4.1 mmol/L (3.5-5.5); Uric Acid 5.1 mg/dL (2.9-7.7)
[2018-11-19 19:27] LABS: Creatinine,Urine Random 14.8 mg/dL
[2018-11-19 19:39] LABS: Total Protein,Urine Random 6.6 mg/dL (0.0-13.5)
[2018-11-19 19:49] LABS: Parathyroid Hormone Intact 74.3 pg/mL (14.0-72.0)
== END | disposition home or self-care (01) ==
LOC: LABWHC1 12:58
PROVIDERS: ATTEND Internal Medicine Nephrology
DX: N18.3 Chronic kidney disease, stage 3 (moderate) (principal); R80.9 Proteinuria, unspecified
CPT/HCPCS: 36415; 80048; 81001; 82040; 82306; 82570; 82728; 83540; 83550; 83735; 83970; 84100; 84156; 84550; 85025

== ENCOUNTER → 2018-12-24 | Outpatient (CLI) | payer MEDICARE ==
[2018-12-24 19:25] LABS: African American GFR (CKD) 59.3 (60.0-200.0); Albumin 4.3 g/dL (3.80-4.90); Albumin/Globulin Ratio 2.53 (1.60-3.17); Anion Gap 9.9 mmol/L (4.00-12.00); BUN/Creat Ratio 30.91 Ratio (12.00-20.00); Calcium 9.3 mg/dL (8.7-10.3); Carbon Dioxide 30.1 mmol/L (21.6-31.8); Globulin 1.7 g/dL (1.6-3.3); LDL Cholesterol,Calculated 47.4 mg/dL (0.0-131.0); Potassium 4.7 mmol/L (3.5-5.5); Total Bilirubin 0.4 mg/dL (0.2-1.2); VLDL Calculation 32.6 mg/dL (5.00-40.00)
[2018-12-25 01:12] LABS: Hemoglobin A1C 6.6 % (4.0-6.0)
== END | disposition home or self-care (01) ==
LOC: LABWHC1 11:57
PROVIDERS: ATTEND Physician Assistant
DX: E78.5 Hyperlipidemia, unspecified (principal); E11.65 Type 2 diabetes mellitus with hyperglycemia
CPT/HCPCS: 36415; 80053; 80061; 82043; 82570; 83036; 84443

== ENCOUNTER → 2019-03-04 | Outpatient (CLI) | payer MEDICARE ==
[2019-03-04 13:12] LABS: Appearance,Urine Clear (Clear); Basophils # (A) 0.1 k/uL (0-0.2); Basophils % (A) 1 %; Bilirubin,Urine Negative (Negative); Blood,Urine Negative (Negative); Color,Urine Colorless; Eosinophils # (A) 0.4 k/uL (0-0.7); Eosinophils % (A) 4 %; Glucose,Urine (UA) Negative (Negative); HCT 38.9 % (34.0-46.0); HGB 13.1 gm/dL (11.4-16.0); Ketones,Urine Negative (Negative); Leukocyte Esterase,Urine Negative (Negative); Lymphocytes # (A) 2.4 k/uL (1.0-4.8); Lymphocytes % (A) 28 %; MCHC 33.7 g/dL (31.0-37.0); MCV 88.9 fL (80.0-100.0); Mean Platelet Volume 6.7; Monocytes # (A) 0.4 k/uL (0-1.0); Monocytes % (A) 5 %; Neutrophils # (A) 5.3 k/uL (1.3-7.7); Neutrophils % (A) 61 %; Nitrite,Urine Negative (Negative); PH, Urine 7.5 (5.0-8.0); Platelet Count 259 k/uL (150-450); Protein,Urine Negative (Negative); RBC 4.37 m/uL (3.80-5.40); RDW 13.7 % (11.5-15.5); Specific Gravity,Urine 1.006 (1.001-1.035); Urobilinogen,Urine <2.0 mg/dL (<2.0); WBC 8.8 k/uL (3.8-10.6)
[2019-03-04 18:40] LABS: Creatinine,Urine Random 14.1 mg/dL
[2019-03-04 21:05] LABS: Ferritin 100.2 ng/mL (10.0-291.0); Vitamin D 25 Hydroxy 48.4 ng/mL (30.0-100.0)
[2019-03-04 21:25] LABS: Iron Saturation 23.48 (12.00-45.00)
[2019-03-04 21:48] LABS: African American GFR (CKD) 48.5 (60.0-200.0); Albumin 4.8 g/dL (3.80-4.90); Anion Gap 9.4 mmol/L (4.00-12.00); BUN/Creat Ratio 27.69 Ratio (12.00-20.00); Calcium 9.5 mg/dL (8.7-10.3); Carbon Dioxide 32.6 mmol/L (21.6-31.8); Magnesium 2.3 mg/dL (1.5-2.4); Phosphorus 4.3 mg/dL (2.4-5.1); Potassium 4.2 mmol/L (3.5-5.5)
== END | disposition home or self-care (01) ==
LOC: LABWHC1 12:34
PROVIDERS: ATTEND Internal Medicine Nephrology
DX: N39.0 Urinary tract infection, site not specified (principal); M10.9 Gout, unspecified; N25.81 Secondary hyperparathyroidism of renal origin; E55.9 Vitamin D deficiency, unspecified; E61.1 Iron deficiency; D63.1 Anemia in chronic kidney disease; N18.3 Chronic kidney disease, stage 3 (moderate); R80.9 Proteinuria, unspecified
CPT/HCPCS: 36415; 80048; 81003; 82040; 82306; 82570; 82728; 83540; 83550; 83735; 83970; 84100; 84156; 84550; 85025

== ENCOUNTER → 2019-07-22 | Outpatient (CLI) | payer MEDICARE ==
[2019-07-22 19:19] LABS: Urine Creatinine 18.9 mg/dL
[2019-07-22 20:32] LABS: Albumin 4.7 g/dL (3.80-4.90); Albumin/Globulin Ratio 2.35 (1.60-3.17); Anion Gap 11.3 mmol/L (4.00-12.00); Calcium 9.8 mg/dL (8.7-10.3); Carbon Dioxide 31.7 mmol/L (21.6-31.8); Chol/HDL Ratio 2.91; LDL Cholesterol,Calculated 36.2 mg/dL (0.0-131.0); Non-African American GFR(CKD) 45.8 (60.0-200.0); Potassium 4.3 mmol/L (3.5-5.5); Total Bilirubin 0.5 mg/dL (0.2-1.2); Total Protein 6.7 g/dL (6.2-8.2); VLDL Calculation 51.8 mg/dL (5.00-40.00)
[2019-07-22 22:21] LABS: Hemoglobin A1C 6.9 % (4.0-6.0)
== END | disposition home or self-care (01) ==
LOC: LABWHC1 12:24
PROVIDERS: ATTEND Internal Medicine Endocrinology, Diabetes & Metabolism
DX: E11.65 Type 2 diabetes mellitus with hyperglycemia (principal); E03.8 Other specified hypothyroidism
CPT/HCPCS: 36415; 80053; 80061; 82043; 82570; 83036; 84443

== ENCOUNTER → 2019-09-10 | Outpatient (CLI) | payer MEDICARE ==
[2019-09-10 11:25] LABS: Basophils # (A) 0.1 k/uL (0-0.2); Basophils % (A) 2 %; Eosinophils # (A) 0.3 k/uL (0-0.7); Eosinophils % (A) 4 %; HCT 39.7 % (34.0-46.0); HGB 12.9 gm/dL (11.4-16.0); Lymphocytes # (A) 2.2 k/uL (1.0-4.8); Lymphocytes % (A) 30 %; MCH 29.8 pg (25.0-35.0); MCHC 32.5 g/dL (31.0-37.0); Mean Platelet Volume 8.2; Monocytes # (A) 0.5 k/uL (0-1.0); Monocytes % (A) 6 %; Neutrophils % (A) 55 %; Platelet Count 234 k/uL (150-450); RBC 4.31 m/uL (3.80-5.40); RDW 13.8 % (11.5-15.5); WBC 7.3 k/uL (3.8-10.6)
[2019-09-10 11:26] LABS: Protein/Creatinine Ratio,Urine 1.538
[2019-09-10 11:58] LABS: Appearance,Urine Clear (Clear); Bilirubin,Urine Negative (Negative); Blood,Urine Negative (Negative); Color,Urine Colorless; Glucose,Urine (UA) Negative (Negative); Ketones,Urine Negative (Negative); Leukocyte Esterase,Urine Trace (Negative); Nitrite,Urine Negative (Negative); PH, Urine 6.5 (5.0-8.0); Protein,Urine Trace (Negative); RBC,Urine <1 /hpf (0-5); Specific Gravity,Urine 1.006 (1.001-1.035); Urobilinogen,Urine <2.0 mg/dL (<2.0); WBC,Urine 3 /hpf (0-5)
[2019-09-10 15:48] LABS: Ferritin 101.7 ng/mL (10.0-291.0)
[2019-09-10 15:51] LABS: % Iron Saturation 17.88 (12.00-45.00); Albumin 4.5 g/dL (3.80-4.90); BUN/Creat Ratio 20.71 Ratio (12.00-20.00); Calcium 9.6 mg/dL (8.7-10.3); Magnesium 2.3 mg/dL (1.5-2.4); Phosphorus 4.7 mg/dL (2.4-5.1); Potassium 3.7 mmol/L (3.5-5.5); Uric Acid 5.9 mg/dL (2.9-7.7)
== END | disposition home or self-care (01) ==
LOC: LABWHC1 10:51
PROVIDERS: ATTEND Internal Medicine Nephrology
DX: N18.3 Chronic kidney disease, stage 3 (moderate) (principal); E55.9 Vitamin D deficiency, unspecified; N25.81 Secondary hyperparathyroidism of renal origin; M10.9 Gout, unspecified; N39.0 Urinary tract infection, site not specified; D64.9 Anemia, unspecified; R80.9 Proteinuria, unspecified
CPT/HCPCS: 36415; 80048; 81001; 82040; 82306; 82570; 82728; 83540; 83550; 83735; 83970; 84100; 84156; 84550; 85025

== ENCOUNTER → 2019-11-18 | Outpatient (CLI) | payer MEDICARE ==
[2019-11-18 12:12] LABS: Appearance,Urine Clear (Clear); Bilirubin,Urine Negative (Negative); Blood,Urine Negative (Negative); Color,Urine Colorless; Glucose,Urine (UA) Negative (Negative); Ketones,Urine Negative (Negative); Leukocyte Esterase,Urine Trace (Negative); Nitrite,Urine Negative (Negative); PH, Urine 6.5 (5.0-8.0); Protein,Urine Negative (Negative); Specific Gravity,Urine 1.006 (1.001-1.035); Urobilinogen,Urine <2.0 mg/dL (<2.0); WBC,Urine 4 /hpf (0-5)
[2019-11-18 12:20] LABS: Protein/Creatinine Ratio,Urine 0.55
[2019-11-18 12:39] LABS: Basophils # (A) 0.1 k/uL (0-0.2); Basophils % (A) 1 %; Eosinophils # (A) 0.3 k/uL (0-0.7); Eosinophils % (A) 4 %; HCT 39.7 % (34.0-46.0); Lymphocytes # (A) 2.4 k/uL (1.0-4.8); Lymphocytes % (A) 25 %; MCH 30.6 pg (25.0-35.0); MCHC 32.6 g/dL (31.0-37.0); MCV 93.9 fL (80.0-100.0); Monocytes # (A) 0.5 k/uL (0-1.0); Monocytes % (A) 5 %; Neutrophils # (A) 5.9 k/uL (1.3-7.7); Neutrophils % (A) 63 %; Platelet Count 221 k/uL (150-450); RBC 4.23 m/uL (3.80-5.40); RDW 14.1 % (11.5-15.5); WBC 9.5 k/uL (3.8-10.6)
[2019-11-18 20:41] LABS: % Iron Saturation 11.93 (12.00-45.00); African American GFR (CKD) 48.1 (60.0-200.0); Albumin 4.5 g/dL (3.80-4.90); Anion Gap 12.1 mmol/L (4.00-12.00); BUN/Creat Ratio 31.54 Ratio (12.00-20.00); Calcium 9.9 mg/dL (8.7-10.3); Carbon Dioxide 28.9 mmol/L (21.6-31.8); Magnesium 2.4 mg/dL (1.5-2.4); Non-African American GFR(CKD) 41.5 (60.0-200.0); Phosphorus 4.5 mg/dL (2.4-5.1); Potassium 4.8 mmol/L (3.5-5.5); Uric Acid 5.5 mg/dL (2.9-7.7)
[2019-11-18 20:49] LABS: Ferritin 105.8 ng/mL (10.0-291.0)
== END | disposition home or self-care (01) ==
LOC: LABWHC1 10:59
PROVIDERS: ATTEND Internal Medicine Nephrology
DX: E55.9 Vitamin D deficiency, unspecified (principal); M10.9 Gout, unspecified; D64.9 Anemia, unspecified; R80.9 Proteinuria, unspecified; N39.0 Urinary tract infection, site not specified
CPT/HCPCS: 36415; 80048; 81001; 82040; 82570; 82728; 83540; 83550; 83735; 83970; 84100; 84156; 84550; 85025

== ENCOUNTER → 2020-02-24 | Outpatient (CLI) | payer MEDICARE ==
[2020-02-24 17:46] LABS: Albumin 4.3 g/dL (3.80-4.90); Albumin/Globulin Ratio 2.15 (1.60-3.17); Anion Gap 9.5 mmol/L (4.00-12.00); BUN/Creat Ratio 33.57 Ratio (12.00-20.00); Calcium 9.3 mg/dL (8.7-10.3); Carbon Dioxide 29.5 mmol/L (21.6-31.8); Chol/HDL Ratio 2.93; LDL Cholesterol,Calculated 55.8 mg/dL (0.0-131.0); Potassium 4.2 mmol/L (3.5-5.5); Total Bilirubin 0.4 mg/dL (0.3-1.2); Total Protein 6.3 g/dL (6.2-8.2); VLDL Calculation 21.2 mg/dL (5.00-40.00)
[2020-02-24 18:18] LABS: Urine Creatinine 64.7 mg/dL
[2020-02-24 19:46] LABS: Hemoglobin A1C 6.4 % (4.0-6.0)
== END | disposition home or self-care (01) ==
LOC: LABWHC1 10:45
PROVIDERS: ATTEND Internal Medicine Endocrinology, Diabetes & Metabolism
DX: E11.22 Type 2 diabetes mellitus with diabetic chronic kidney disease (principal)
CPT/HCPCS: 36415; 80053; 80061; 82043; 82570; 83036; 84443

== ENCOUNTER → 2020-04-10 | Outpatient (CLI) | payer MEDICARE ==
--- NOTE | 2020-04-13 11:07 | MM ---
Reason for exam: screening (asymptomatic). Last mammogram was performed 1 year and 11 months ago. History: Patient is postmenopausal. Physical Findings: A clinical breast exam by your physician is recommended on an annual basis and results should be correlated with mammographic findings. MG Screening Mammo w CAD Bilateral CC and MLO view(s) were taken. Prior study comparison: May 03, 2018, bilateral MG screening mammo w CAD. April 26, 2016, bilateral MG screening mammo w CAD. There are scattered fibroglandular densities. Stable benign calcifications. No significant changes when compared with prior studies. ASSESSMENT: Benign, BI-RAD 2 RECOMMENDATION: Routine screening mammogram of both breasts in 1 year.
== END | disposition home or self-care (01) ==
LOC: RADMAMWWP 09:30
PROVIDERS: ATTEND Family Medicine
DX: Z12.31 Encounter for screening mammogram for malignant neoplasm of breast (principal)
CPT/HCPCS: 77067

== ENCOUNTER → 2020-04-13 | Outpatient (CLI) | payer MEDICARE ==
[2020-04-13 15:37] LABS: Basophils # (A) 0.1 k/uL (0-0.2); Basophils % (A) 1 %; Eosinophils # (A) 0.4 k/uL (0-0.7); Eosinophils % (A) 5 %; HCT 39.2 % (34.0-46.0); HGB 12.7 gm/dL (11.4-16.0); Lymphocytes # (A) 2.6 k/uL (1.0-4.8); Lymphocytes % (A) 28 %; MCH 30.2 pg (25.0-35.0); MCHC 32.5 g/dL (31.0-37.0); MCV 92.9 fL (80.0-100.0); Mean Platelet Volume 8.2; Monocytes # (A) 0.5 k/uL (0-1.0); Monocytes % (A) 5 %; Neutrophils # (A) 5.5 k/uL (1.3-7.7); Neutrophils % (A) 60 %; Platelet Count 236 k/uL (150-450); RBC 4.22 m/uL (3.80-5.40); RDW 14.2 % (11.5-15.5); WBC 9.2 k/uL (3.8-10.6)
[2020-04-13 15:38] LABS: Appearance,Urine Clear (Clear); Bilirubin,Urine Negative (Negative); Blood,Urine Negative (Negative); Color,Urine Colorless; Glucose,Urine (UA) Negative (Negative); Ketones,Urine Negative (Negative); Leukocyte Esterase,Urine Negative (Negative); Nitrite,Urine Negative (Negative); PH, Urine 6.5 (5.0-8.0); Protein,Urine Negative (Negative); Specific Gravity,Urine 1.008 (1.001-1.035); Urobilinogen,Urine <2.0 mg/dL (<2.0)
[2020-04-13 15:52] LABS: Creatinine,Urine Random 32.4 mg/dL; Protein/Creatinine Ratio,Urine 0.494
[2020-04-14 01:38] LABS: Albumin 4.4 g/dL (3.80-4.90); Magnesium 2.1 mg/dL (1.5-2.4); Phosphorus 3.8 mg/dL (2.4-5.1)
[2020-04-14 01:39] LABS: % Iron Saturation 20.06 (12.00-45.00); African American GFR (CKD) 48.1 (60.0-200.0); Anion Gap 12.1 mmol/L (4.00-12.00); BUN/Creat Ratio 26.92 Ratio (12.00-20.00); Calcium 9.5 mg/dL (8.7-10.3); Carbon Dioxide 31.9 mmol/L (21.6-31.8); Non-African American GFR(CKD) 41.5 (60.0-200.0); Potassium 4.1 mmol/L (3.5-5.5); Uric Acid 5.8 mg/dL (2.9-7.7)
[2020-04-14 01:46] LABS: Ferritin 122.4 ng/mL (10.0-291.0)
== END | disposition home or self-care (01) ==
LOC: LABWHC1 12:00
PROVIDERS: ATTEND Internal Medicine Nephrology
DX: D64.9 Anemia, unspecified (principal); E55.9 Vitamin D deficiency, unspecified; N18.30 Chronic kidney disease, stage 3 unspecified; N25.81 Secondary hyperparathyroidism of renal origin; M10.9 Gout, unspecified; N39.0 Urinary tract infection, site not specified; R80.9 Proteinuria, unspecified
CPT/HCPCS: 36415; 80048; 81003; 82040; 82306; 82570; 82728; 83540; 83550; 83735; 83970; 84100; 84156; 84550; 85025

== ENCOUNTER → 2020-04-21 | Outpatient (CLI) | payer MEDICARE ==
--- NOTE | 2020-04-21 12:39 | US ---
EXAMINATION TYPE: US venous doppler duplex LE RT DATE OF EXAM: 04/21/2020 10:38 AM COMPARISON: NONE CLINICAL HISTORY: M79.604 PAIN IN RT LEG. Pain SIDE PERFORMED: Right TECHNIQUE: The lower extremity deep venous system is examined utilizing real time linear array sonog oralia with graded compression, doppler sonography and color-flow sonography. VESSELS IMAGED: Common Femoral Vein Deep Femoral Vein Greater Saphenous Vein * Femoral Vein Popliteal Vein Small Saphenous Vein * Proximal Calf Veins (* superficial vessels) Right Leg: Negative for DVT IMPRESSION: 1. Right lower extremity ultrasound negative for deep venous thrombosis.
== END | disposition home or self-care (01) ==
LOC: RADUSWWP 10:07
PROVIDERS: ATTEND Family Medicine
DX: M79.604 Pain in right leg (principal)

== ENCOUNTER → 2020-07-07 | Outpatient (CLI) | payer MEDICARE ==
[2020-07-07 20:20] LABS: African American GFR (CKD) 32.3 (60.0-200.0); Albumin 4.2 g/dL (3.80-4.90); Albumin/Globulin Ratio 2.47 (1.60-3.17); Anion Gap 10.3 mmol/L (4.00-12.00); BUN/Creat Ratio 15.56 Ratio (12.00-20.00); Calcium 8.9 mg/dL (8.7-10.3); Carbon Dioxide 29.7 mmol/L (21.6-31.8); Chol/HDL Ratio 3.61; Globulin 1.7 g/dL (1.6-3.3); LDL Cholesterol,Calculated 54.4 mg/dL (0.0-131.0); Non-African American GFR(CKD) 27.8 (60.0-200.0); Potassium 3.5 mmol/L (3.5-5.5); Total Bilirubin 0.5 mg/dL (0.2-1.2); Total Protein 5.9 g/dL (6.2-8.2); VLDL Calculation 26.6 mg/dL (5.00-40.00)
[2020-07-07 22:09] LABS: Hemoglobin A1C 6.6 % (4.0-6.0)
[2020-07-08 03:37] LABS: Urine Creatinine 28.7 mg/dL
== END | disposition home or self-care (01) ==
LOC: LABWHC1 11:44
PROVIDERS: ATTEND Internal Medicine Endocrinology, Diabetes & Metabolism
DX: E11.22 Type 2 diabetes mellitus with diabetic chronic kidney disease (principal)
CPT/HCPCS: 36415; 80053; 80061; 82043; 82570; 83036; 84443

== ENCOUNTER 2020-08-10 10:58 | Observation (INO) | payer MEDICARE ==
--- NOTE | 2020-08-10 11:31 | ED ---
General Adult HPI - General Chief complaint: Chest Pain Stated complaint: High BP/chest pressure Time Seen by Provider: 08/10/20 11:14 Source: patient Mode of arrival: wheelchair Limitations: no limitations - History of Present Illness Initial comments: Dictation was produced using [employer] dictation software. please excuse any grammatical, word or spelling errors. This patient was cared for during a federal and state declared state of emergency secondary to Covid 19 Chief Complaint: 70-year-old female presents chest symptoms History of Present Illness: Is 70-year-old female she was instructed by her steam clothes press operator come to the emergency department for evaluation of chest symptoms. Patient states the last week associated been having episodes of substernal chest symptoms. She states it typically feels like her GERD and is not associated however with eating. States the pain sometimes radiates to the back. Denies any numbness tingling or paresthesias to the arms or legs. She denies that this pain is severe. She has had hypertension that's been very high for the last couple months. It's currently being managed by her coining press operator and steam clothes press operator. Patient denies any associated diaphoresis or nausea. The ROS documented in this emergency department record has been reviewed and confirmed by me. Those systems with pertinent positive or negative responses have been documented in the HPI. All other systems are other negative and/or noncontributory. PHYSICAL EXAM: General Impression: Alert and oriented x3, not in acute distress HEENT: Normocephalic atraumatic, extra-ocular movements intact, pupils equal and reactive to light bilaterally, mucous membranes moist. Cardiovascular: Heart regular rate and rhythm Chest: Able to complete full sentences, no retractions, no tachypnea Abdomen: abdomen soft, non-tender, non-distended, no organomegaly Musculoskeletal: Pulses present and equal in all extremities, no peripheral edema Motor: no focal deficits noted Neurological: CN II-XII grossly intact, no focal motor or sensory deficits noted Skin: Intact with no visualized rashes Psych: Normal affect and mood ED course: 70-year-old female presents with atypical chest pain with typical features. As upon arrival shows blood pressure 212/85, rest of vital signs within acceptable limits. Patient states she was diagnosed with acute kidney injury back in June and since then has been having difficulty managing blood pressures. She states that over blood pressures are typically around 200 systolic.Laboratory evaluation obtained. CBC, coag panel is unremarkable. Metabolic panel is negative. Patient's renal markers appear to be around her baseline may slightly elevated. Troponin is negative. Chest x-ray is nonacute. Patient reevaluated at bedside at approximately 12:45 PM found with stable medical condition. Click or presentation consistent with atypical chest pain with typical features. She does have risk factors. Disposition options were discussed with patient and she is agreeable for observation admission for surgical and is, cardiac monitoring and cardiology consultation. Patient is ALLERGIC to aspirin. She is given Plavix. EKG interpretation: Ventricular rate 65, normal sinus rhythm, MD interval 152, QRS 90, QTC 470. No MD prolongation, no QTC prolongation, no ST or T-wave ch anges noted. Note EKG for comparison. Overall, this EKG is unremarkable - Related Data Home Medications Medication Instructions Recorded Confirmed Bumetanide [BUMEX] 2 mg PO TID 07/19/17 08/10/20 Calcium Carbonate [Calcium] 600 mg PO DAILY 07/19/17 08/10/20 Ergocalciferol (Vitamin D2) 50,000 unit PO [id number] 07/19/17 08/10/20 [Vitamin D2] Ferrous Sulfate [Feosol] 325 mg PO DAILY 07/19/17 08/10/20 Levothyroxine Sodium [Synthroid] 112 mcg PO DAILY 07/19/17 08/10/20 Losartan [Cozaar] 50 mg PO DAILY 07/19/17 08/10/20 Potassium Chloride [Klor-Con 20] 20 meq PO DAILY 07/19/17 08/10/20 Atorvastatin Calcium [Lipitor] 20 mg PO DAILY 08/10/20 08/10/20 Carvedilol [Coreg] 25 mg PO BID 08/10/20 08/10/20 Omeprazole [PriLOSEC] 20 mg PO AC-BID 08/10/20 08/10/20 Triamcinolone Acetonide 2 spray EA NOSTRIL DAILY 08/10/20 08/10/20 [Triamcinolone Acetonide 0.055MG Nasal] allopurinoL [Zyloprim] 100 mg PO DAILY 08/10/20 08/10/20 calcitrioL [Calcitriol] 0.25 mcg PO SINCLAIR 08/10/20 08/10/20 sitaGLIPtin [Januvia] 50 mg PO DAILY 08/10/20 08/10/20 Allergies Allergy/AdvReac Type Severity Reaction Status Date / Time adhesive Allergy RED SKIN Verified 08/10/20 11:50 IF ON TO LONG indomethacin [From Indocin] Allergy TROUBLE Verified 08/10/20 11:50 BREATHING" levofloxacin Allergy MUSCLE PAIN Verified 08/10/20 11:50 Sulfa (Sulfonamide Allergy Rash/Hives Verified 08/10/20 11:50 Antibiotics) Review of Systems ROS Statement: Those systems with pertinent positive or pertinent negative responses have been documented in the HPI. ROS Other: All systems not noted in ROS Statement are negative. Past Medical History Past Medical History: Hyperlipidemia, Hypertension, Osteoarthritis (OA), Thyroid Disorder Additional Past Medical History / Comment(s): RT CATARACT. STAGE III KIDNEY FAILURE-GETTING BETTER History of Any Multi-Drug Resistant Organisms: None Reported Past Surgical History: Cholecystectomy, Orthopedic Surgery, Tubal Ligation Additional Past Surgical History / Comment(s): CARPAL TUNNEL RELEASE ,SINUS SURGERY,PARATHYROID SURGERY Past Anesthesia/Blood Transfusion Reactions: No Reported Reaction Past Psychological History: No Psychological Hx Reported Smoking Status: Never smoker Past Alcohol Use History: None Reported Past Drug Use History: None Reported - Past Family History Sister(s) Family Medical History: Deep Vein Thrombosis (DVT) General Exam Limitations: no limitations Course Vital Signs 08/10/20 08/10/20 11:01 11:37 Temperature 98.2 F Pulse Rate 72 67 Respiratory 18 18 Rate Blood Pressure 212/85 187/85 O2 Sat by Pulse 97 97 Oximetry Medical Decision Making - Lab Data Result diagrams: 08/10/20 11:33 08/10/20 11:33 Lab Results 08/10/20 08/10/20 08/10/20 Range/Units 11:33 11:33 11:33 WBC 9.0 (3.8-10.6) k/uL RBC 3.84 (3.80-5.40) m/uL Hgb 11.9 (11.4-16.0) gm/dL Hct 35.4 (34.0-46.0) % MCV 92.2 (80.0-100.0) fL MCH 31.1 (25.0-35.0) pg MCHC 33.7 (31.0-37.0) g/dL RDW 14.5 (11.5-15.5) % Plt Count 214 (150-450) k/uL MPV 7.8 Neutrophils % 66 % Lymphocytes % 24 % Monocytes % 6 % Eosinophils % 3 % Basophils % 1 % Neutrophils # 5.9 (1.3-7.7) k/uL Lymphocytes # 2.2 (1.0-4.8) k/uL Monocytes # 0.5 (0-1.0) k/uL Eosinophils # 0.2 (0-0.7) k/uL Basophils # 0.1 (0-0.2) k/uL PT 9.7 (9.0-12.0) sec INR 0.9 (<1.2) APTT 22.2 (22.0-30.0) sec Sodium 143 (137-145) mmol/L Potassium 3.7 (3.5-5.1) mmol/L Chloride 104 (98-107) mmol/L Carbon Dioxide 31 H (22-30) mmol/L Anion Gap 8 mmol/L BUN 39 H (7-17) mg/dL Creatinine 1.86 H (0.52-1.04) mg/dL Est GFR (CKD-EPI)AfAm 31 (>60 ml/min/1.73 sqM) Est GFR (CKD-EPI)NonAf 27 (>60 ml/min/1.73 sqM) Glucose 132 H (74-99) mg/dL Calcium 9.2 (8.4-10.2) mg/dL Total Bilirubin 0.3 (0.2-1.3) mg/dL AST 17 (14-36) U/L ALT 12 (4-34) U/L Alkaline Phosphatase 88 (38-126) U/L Troponin I (0.000-0.034) ng/mL Total Protein 6.6 (6.3-8.2) g/dL Albumin 3.9 (3.5-5.0) g/dL 08/10/20 Range/Units 11:33 WBC (3.8-10.6) k/uL RBC (3.80-5.40) m/uL Hgb (11.4-16.0) gm/dL Hct (34.0-46.0) % MCV (80.0-100.0) fL MCH (25.0-35.0) pg MCHC (31.0-37.0) g/dL RDW (11.5-15.5) % Plt Count (150-450) k/uL MPV Neutrophils % % Lymphocytes % % Monocytes % % Eosinophils % % Basophils % % Neutrophils # (1.3-7.7) k/uL Lymphocytes # (1.0-4.8) k/uL Monocytes # (0-1.0) k/uL Eosinophils # (0-0.7) k/uL Basophils # (0-0.2) k/uL PT (9.0-12.0) sec INR (<1.2) APTT (22.0-30.0) sec Sodium (137-145) mmol/L Potassium (3.5-5.1) mmol/L Chloride (98-107) mmol/L Carbon Dioxide (22-30) mmol/L Anion Gap mmol/L BUN (7-17) mg/dL Creatinine (0.52-1.04) mg/dL Est GFR (CKD-EPI)AfAm (>60 ml/min/1.73 sqM) Est GFR (CKD-EPI)NonAf (>60 ml/min/1.73 sqM) Glucose (74-99) mg/dL Calcium (8.4-10.2) mg/dL Total Bilirubin (0.2-1.3) mg/dL AST (14-36) U/L ALT (4-34) U/L Alkaline Phosphatase (38-126) U/L Troponin I <0.012 (0.000-0.034) ng/mL Total Protein (6.3-8.2) g/dL Albumin (3.5-5.0) g/dL Disposition Clinical Impression: Chest pain Disposition: ADMITTED IP TO THIS HOSP Condition: Fair Referrals: Shashi Nance MD [Primary Care Provider] - 1-2 days Decision Time: 12:46
[2020-08-10 11:50] LABS: Basophils # (A) 0.1 k/uL (0-0.2); Basophils % (A) 1 %; Eosinophils # (A) 0.2 k/uL (0-0.7); Eosinophils % (A) 3 %; HCT 35.4 % (34.0-46.0); HGB 11.9 gm/dL (11.4-16.0); Lymphocytes # (A) 2.2 k/uL (1.0-4.8); Lymphocytes % (A) 24 %; MCH 31.1 pg (25.0-35.0); MCHC 33.7 g/dL (31.0-37.0); MCV 92.2 fL (80.0-100.0); Mean Platelet Volume 7.8; Monocytes # (A) 0.5 k/uL (0-1.0); Monocytes % (A) 6 %; Neutrophils # (A) 5.9 k/uL (1.3-7.7); Neutrophils % (A) 66 %; Platelet Count 214 k/uL (150-450); RBC 3.84 m/uL (3.80-5.40); RDW 14.5 % (11.5-15.5)
[2020-08-10 12:05] LABS: INR 0.9 (<1.2); Partial Thromboplastin Time 22.2 sec (22.0-30.0); Prothrombin Time 9.7 sec (9.0-12.0)
[2020-08-10 12:09] LABS: Albumin 3.9 g/dL (3.5-5.0); Calcium 9.2 mg/dL (8.4-10.2); Potassium 3.7 mmol/L (3.5-5.1); Total Bilirubin 0.3 mg/dL (0.2-1.3); Total Protein 6.6 g/dL (6.3-8.2)
--- NOTE | 2020-08-10 12:17 | XR ---
EXAMINATION TYPE: XR chest 1V portable DATE OF EXAM: 08/10/2020 COMPARISON: NONE HISTORY: History of hypertension presents with chest pain and pressure. TECHNIQUE: Single AP portable frontal view of the chest is obtained. FINDINGS: There is chronic parenchymal change without suspicious focal air space opacity, pleural ef fusion, or pneumothorax seen. The cardiac silhouette size is mildly enlarged with atherosclerotic ch denisa aortic knob. Degenerative change bilateral glenohumeral joints.. IMPRESSION: Mild cardiomegaly and chronic parenchymal changes without acute pulmonary process.
[2020-08-10] MEDS ORDERED: NITROGLYCERIN SL TABS 0.4 MG TAB SUBLINGUAL PRN (12:43)
[2020-08-10] MEDS ORDERED: CLOPIDOGREL 75 MG TAB PO STA (12:47)
--- NOTE | 2020-08-10 15:56 | P.HPIM ---
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 Patient chest pain is too stressed and in severity nonradiating not associated with diaphoresis, aphasia lightheadedness. Patient just pain is nonpleuritic constant. Patient occasionally do get this pain after eating. Patient denied any previous history of the coronary artery disease. Does have history of hyperlipidemia not a smoker denied any history of diabetes mellitus does have hypertension does have chronic kidney disease stage III. Doesn't have any history of congestive heart failure patient was on Bumex during her previous hospitalization this was discontinued because of her acute renal failure her present creatinine is similar to her previous aspiration but higher than usual her baseline creatinine is around 1.4. Review of Systems REVIEW OF SYSTEMS: CONSTITUTIONAL: No fever, no malaise, no fatigue. HEENT: No recent visual problems or hearing problems. Denied any sore throat. CARDIOVASCULAR: No orthopnea, PND, no palpitations, no syncope. PULMONARY: No shortness of breath, no cough, no hemoptysis. GASTROINTESTINAL: No diarrhea, no nausea, no vomiting, no abdominal pain. NEUROLOGICAL: No headaches, no weakness, no numbness. HEMATOLOGICAL: Denies any bleeding or petechiae. GENITOURINARY: Denies any burning micturition, frequency, or urgency. MUSCULOSKELETAL/RHEUMATOLOGICAL: Denies any joint pain, swelling, or any muscle pain. ENDOCRINE: Denies any polyuria or polydipsia. The rest of the 14-point review of systems is negative. Past Medical History Past Medical History: Hyperlipidemia, Hypertension, Osteoarthritis (OA), Thyroid Disorder Additional Past Medical History / Comment(s): RT CATARACT. STAGE III KIDNEY FAILURE-GETTING BETTER History of Any Multi-Drug Resistant Organisms: None Reported Past Surgical History: Cholecystectomy, Orthopedic Surgery, Tubal Ligation Additional Past Surgical History / Comment(s): CARPAL TUNNEL RELEASE ,SINUS SURGERY,PARATHYROID SURGERY Past Anesthesia/Blood Transfusion Reactions: No Reported Reaction Past Psychological History: No Psychological Hx Reported Smoking Status: Never smoker Past Alcohol Use History: None Reported Past Drug Use History: None Reported - Past Family History Sister(s) Family Medical History: Deep Vein Thrombosis (DVT) Medications and Allergies Home Medications Medication Instructions Recorded Confirmed Type Bumetanide [BUMEX] 2 mg PO TID 07/19/17 08/10/20 History Calcium Carbonate [Calcium] 600 mg PO DAILY 07/19/17 08/10/20 History Ergocalciferol (Vitamin D2) 50,000 unit PO [id number] 07/19/17 08/10/20 History [Vitamin D2] Ferrous Sulfate [Feosol] 325 mg PO DAILY 07/19/17 08/10/20 History Levothyroxine Sodium [Synthroid] 112 mcg PO DAILY 07/19/17 08/10/20 History Losartan [Cozaar] 50 mg PO DAILY 07/19/17 08/10/20 History Potassium Chloride [Klor-Con 20] 20 meq PO DAILY 07/19/17 08/10/20 History Atorvastatin Calcium [Lipitor] 20 mg PO DAILY 08/10/20 08/10/20 History Carvedilol [Coreg] 25 mg PO BID 08/10/20 08/10/20 History Omeprazole [PriLOSEC] 20 mg PO AC-BID 08/10/20 08/10/20 History Triamcinolone Acetonide 2 spray EA NOSTRIL DAILY 08/10/20 08/10/20 History [Triamcinolone Acetonide 0.055MG Nasal] allopurinoL [Zyloprim] 100 mg PO DAILY 08/10/20 08/10/20 History calcitrioL [Calcitriol] 0.25 mcg PO SINCLAIR 08/10/20 08/10/20 History sitaGLIPtin [Januvia] 50 mg PO DAILY 08/10/20 08/10/20 History Allergies Allergy/AdvReac Type Severity Reaction Status Date / Time adhesive Allergy RED SKIN Verified 08/10/20 11:50 IF ON TO LONG indomethacin [From Indocin] Allergy TROUBLE Verified 08/10/20 11:50 BREATHING" levofloxacin Allergy MUSCLE PAIN Verified 08/10/20 11:50 Sulfa (Sulfonamide Allergy Rash/Hives Verified 08/10/20 11:50 Antibiotics) Physical Exam Vitals: Vital Signs Temp Pulse Resp BP Pulse Ox 08/10/20 15:00 60 18 184/66 97 08/10/20 14:00 18 97 08/10/20 13:00 18 97 08/10/20 12:03 67 18 181/80 97 08/10/20 11:37 67 18 187/85 97 08/10/20 11:01 98.2 F 72 18 212/85 97 Intake and Output 08/10/20 08/10/20 08/10/20 06:59 14:59 22:59 Other: Weight 92.533 kg PHYSICAL EXAMINATION: GENERAL: The patient is alert and oriented x3, not in any acute distress. Well developed, well nourished. HEENT: Pupils are round and equally reacting to light. EOMI. No scleral icterus. No conjunctival pallor. Normocephalic, atraumatic. No pharyngeal erythema. No thyromegaly. CARDIOVASCULAR: S1 and S2 present. No murmurs, rubs, or gallops. PULMONARY: Chest is clear to auscultation, no wheezing or crackles. ABDOMEN: Soft, nontender, nondistended, normoactive bowel sounds. No palpable o rganomegaly. MUSCULOSKELETAL: No joint swelling or deformity. EXTREMITIES: No cyanosis, clubbing, or pedal edema. NEUROLOGICAL: Gross neurological examination did not reveal any focal deficits. SKIN: No rashes. Results CBC & Chem 7: 08/10/20 11:33 08/10/20 11:33 Labs: Abnormal Lab Results - Last 24 Hours (Table) 08/10/20 Range/Units 11:33 Carbon Dioxide 31 H (22-30) mmol/L BUN 39 H (7-17) mg/dL Creatinine 1.86 H (0.52-1.04) mg/dL Glucose 132 H (74-99) mg/dL Assessment and Plan Plan: -Chest pain: We will rule out acute coronary syndromes. We will evaluate the patient to assess of troponins and EKGs. First 2 sets of troponins were negative. 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 -Hypertension -Hyperlipidemia -hyperthyroidism For above-mentioned chronic medical problems patient will be resumed on appropriate home medications.
[2020-08-10] MEDS ORDERED: BUMETANIDE 1 MG TAB PO SCH (16:00)
[2020-08-10] MEDS: PANTOPRAZOLE 40 MG TABLET PO SCH (17:11)
[2020-08-10] MEDS: carvediloL 12.5 MG TAB PO SCH (17:11)
[2020-08-10 19:13] LABS: Glucose,Whole Blood 133 mg/dL (75-99)
[2020-08-11 03:07] LABS: Cholesterol 146 mg/dL (<200); HDL Cholesterol 38 mg/dL (40-60); LDL Cholesterol,Calculated 61 mg/dL (0-99); Triglycerides 234 mg/dL (<150)
[2020-08-11] MEDS ORDERED: LEVOTHYROXINE 112 MCG TAB PO SCH (06:30)
[2020-08-11 07:34] VITALS: BP 163/78; PULSE 63; RESP 16; TEMP 97.6
[2020-08-11 07:36] LABS: Glucose,Whole Blood 132 mg/dL (75-99)
[2020-08-11] MEDS ORDERED: FLUTICASONE 50MCG/SPRAY NASAL 16GM EA NOSTRIL SCH (09:00)
[2020-08-11] MEDS ORDERED: CALCIUM CARBONATE 500 MG CHEWABLE PO SCH (09:00)
[2020-08-11] MEDS ORDERED: allopurinoL 100 MG TAB PO SCH (09:00)
[2020-08-11] MEDS ORDERED: FERROUS SULFATE 325 MG TAB PO SCH (09:00)
[2020-08-11] MEDS ORDERED: LINAGLIPTIN 5 MG TABLET PO SCH (09:00)
[2020-08-11] MEDS ORDERED: amLODIPine 5 MG TAB PO SCH (09:00)
[2020-08-11] MEDS ORDERED: POTASSIUM CHLORIDE ER 20 MEQ TAB.ER PO SCH (09:00)
[2020-08-11] MEDS ORDERED: LOSARTAN 50 MG TAB PO SCH (09:00)
[2020-08-11] MEDS ORDERED: ATORVASTATIN 20 MG TAB PO SCH (09:00)
[2020-08-11] MEDS: PANTOPRAZOLE 40 MG TABLET PO SCH (09:05)
[2020-08-11] MEDS: carvediloL 12.5 MG TAB PO SCH (09:05)
[2020-08-11 09:59] LABS: African American GFR (CKD) 41 (>60 ml/min/1.73 sqM); Anion Gap 8 mmol/L; Blood Urea Nitrogen 29 mg/dL (7-17); Calcium 9.1 mg/dL (8.4-10.2); Carbon Dioxide 30 mmol/L (22-30); Chloride 105 mmol/L (98-107); Glucose 153 mg/dL (74-99); Non-African American GFR(CKD) 36 (>60 ml/min/1.73 sqM); Potassium 3.4 mmol/L (3.5-5.1); Sodium 143 mmol/L (137-145)
--- NOTE | 2020-08-11 10:20 | P.CRDCN ---
History of Present Illness History of present illness: HISTORY OF PRESENTING ILLNESS This is a pleasant 70-year-old female past medical history significant for hypertension, dyslipidemia, chronic kidney disease and arthritis. She foll ows in the office with Dr. Bates. We have been asked to see in consultation for chest pain. She states yesterday she experienced an episode of tightness in the midsternal region. According to the patient she suffers from frequent gastroesophageal reflux disease and feels as though her symptoms were similar to an episode of heartburn. There was no radiation through to the back, down the arm, into the neck or the jaw. She denies associated shortness of breath, dizziness, nausea, vomiting, diaphoresis or palpitations. 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 She has been struggling with controlling her blood pres sure over the previous nephrology has been making frequent adjustments. She had been checking her blood pressure home and is been consistently remaining above 170 systolic. She is maintained on losartan 50 mg daily, Bumex 2 mg daily and Coreg 25 mg twice a day. Blood pressure on arrival to the emergency department was 212/85 and 187/85. She was recently admitted to [facility] earlier this year and underwent an echocardiogram revealing normal LV systolic size and function with no significant valvular abnormalities noted. According to the patient she had a stress test at [facility] that was a nuclear test and she was told it was normal. DIAGNOSTICS EKG reveals sinus mechanism with no acute ST or T wave abnormalities noted. Telemetry tracings indicate SR. Chest xray chronic parenchymal changes with no acute cardiopulmonary process. Laboratory reviewed, CBC unremarkable, sodium 143, potassium 3.7, creatinine 1.86, cardiac enzymes negative 3, NT proBNP 732, LDL 61 and HDL 38. Current cardiac medications include Bumex 2 mg daily, losartan 50 mg daily, Coreg 25 mg twice a day and atorvastatin 20 mg daily. REVIEW OF SYSTEMS At the time of my exam: CONSTITUTIONAL: Denies fever or chills. CARDIOVASCULAR: Denies chest pain, shortness of breath, orthopnea, PND or palpitations. RESPIRATORY: Denies cough. GASTROINTESTINAL: Denies abdominal pain, diarrhea, constipation, nausea or vomiting. MUSCULOSKELETAL: Denies myalgias. NEUROLOGIC: Denies numbness, tingling, headacbe or weakness. ENDOCRINE: Denies fatigue, weight change, polydipsia or polyurina. GENITOURINARY: Denies burning, hematuria or urgency with micturation. HEMATOLOGIC: Denies history of anemia or bleeding. PHYSICAL EXAMINATION Blood pressure 163/78 heart rate 63 afebrile and maintaining oxygen saturation on room air. CONSTITUTIONAL: No apparent distress. HEENT: Head is normocephalic. Pupils are equal, round. Sclerae anicteric. Mucous membranes of the mouth are moist. No JVD. No carotid bruit. CHEST EXAMINATION: Lungs are clear to auscultation. No chest wall tenderness is noted on palpation or with deep breathing. HEART EXAMINATION: Regular rate and rhythm. S1, S2 heard. No murmurs, gallops or rub. ABDOMEN: Soft, nontender. Positive bowel sounds. EXTREMITIES: 2+ peripheral pulses, no lower extremity edema and no calf tenderness. NEUROLOGIC EXAMINATION: Patient is awake, alert and oriented x3. ASSESSMENT Chest pain, atypical. Hypertension, uncontrolled Dyslipidemia Chronic kidney disease PLAN Obtain report of recent stress test performed 01/2020 at [facility] Add amlodipine 5 mg to her daily regimen. An acute coronary event has been ruled out. Recommend further blood pressure management in the office with Dr. Bates. No further cardiac testing required at this time. Thank you kindly for this consultation. Nurse Practitioner note has been reviewed, I agree with a documented findings and plan of care. Patient was seen and examined. Past Medical History Past Medical History: Hyperlipidemia, Hypertension, Osteoarthritis (OA), Thyroid Disorder Additional Past Medical History / Comment(s): RT CATARACT. STAGE III KIDNEY FAILURE-GETTING BETTER History of Any Multi-Drug Resistant Organisms: None Reported Past Surgical History: Cholecystectomy, Orthopedic Surgery, Tubal Ligation Additional Past Surgical History / Comment(s): CARPAL TUNNEL RELEASE ,SINUS SURGERY,PARATHYROID SURGERY Past Anesthesia/Blood Transfusion Reactions: No Reported Reaction Past Psychological History: No Psychological Hx Reported Smoking Status: Never smoker Past Alcohol Use History: None Reported Past Drug Use History: None Reported - Past Family History Sister(s) Family Medical History: Deep Vein Thrombosis (DVT) Medications and Allergies Home Medications Medication Instructions Recorded Confirmed Type Bumetanide [BUMEX] 2 mg PO TID 07/19/17 08/10/20 History Calcium Carbonate [Calcium] 600 mg PO DAILY 07/19/17 08/10/20 History Ergocalciferol (Vitamin D2) 50,000 unit PO [id number] 07/19/17 08/10/20 History [Vitamin D2] Ferrous Sulfate [Feosol] 325 mg PO DAILY 07/19/17 08/10/20 History Levothyroxine Sodium [Synthroid] 112 mcg PO DAILY 07/19/17 08/10/20 History Losartan [Cozaar] 50 mg PO DAILY 07/19/17 08/10/20 History Potassium Chloride [Klor-Con 20] 20 meq PO DAILY 07/19/17 08/10/20 History Atorvastatin Calcium [Lipitor] 20 mg PO DAILY 08/10/20 08/10/20 History Carvedilol [Coreg] 25 mg PO BID 08/10/20 08/10/20 History Omeprazole [PriLOSEC] 20 mg PO AC-BID 08/10/20 08/10/20 History Triamcinolone Acetonide 2 spray EA NOSTRIL DAILY 08/10/20 08/10/20 History [Triamcinolone Acetonide 0.055MG Nasal] allopurinoL [Zyloprim] 100 mg PO DAILY 08/10/20 08/10/20 History calcitrioL [Calcitriol] 0.25 mcg PO SINCLAIR 08/10/20 08/10/20 History sitaGLIPtin [Januvia] 50 mg PO DAILY 08/10/20 08/10/20 History Allergies Allergy/AdvReac Type Severity Reaction Status Date / Time adhesive Allergy RED SKIN Verified 08/10/20 11:50 IF ON TO LONG indomethacin [From Indocin] Allergy TROUBLE Verified 08/10/20 11:50 BREATHING" levofloxacin Allergy MUSCLE PAIN Verified 08/10/20 11:50 Sulfa (Sulfonamide Allergy Rash/Hives Verified 08/10/20 11:50 Antibiotics) Physical Exam Vitals: Vital Signs Temp Pulse Pulse Resp BP BP Pulse Ox 08/11/20 08:59 94 L 08/11/20 07:00 97.6 F 63 16 163/78 94 L 08/11/20 02:00 97.7 F 58 L 18 157/70 97 08/10/20 18:55 98.0 F 61 16 191/78 96 08/10/20 17:08 98.6 F 48 L 16 208/80 98 08/10/20 16:51 98.2 F 58 L 18 170/66 97 08/10/20 16:16 58 L 18 170/66 97 08/10/20 15:00 60 18 184/66 97 08/10/20 14:00 18 97 08/10/20 13:00 18 97 08/10/20 12:03 67 18 181/80 97 08/10/20 11:37 67 18 187/85 97 08/10/20 11:01 98.2 F 72 18 212/85 97 Intake and Output 08/10/20 08/11/20 08/11/20 22:59 06:59 14:59 Intake Total 118 118 Balance 118 118 Intake: Oral 118 118 Other: Voiding Method Toilet Toilet # Voids 1 2 Weight 92.533 kg Results 08/10/20 11:33 08/11/20 09:20 Cardiac Enzymes 08/10/20 08/10/20 08/10/20 Range/Units 11:33 11:33 14:24 AST 17 (14-36) U/L Troponin I <0.012 <0.012 (0.000-0.034) ng/mL 08/10/20 Range/Units 17:08 AST (14-36) U/L Troponin I <0.012 (0.000-0.034) ng/mL Coagulation 08/10/20 Range/Units 11:33 PT 9.7 (9.0-12.0) sec APTT 22.2 (22.0-30.0) sec Lipids 08/10/20 Range/Units 11:33 Triglycerides 234 H (<150) mg/dL Cholesterol 146 (<200) mg/dL HDL Cholesterol 38 L (40-60) mg/dL CBC 08/10/20 Range/Units 11:33 WBC 9.0 (3.8-10.6) k/uL RBC 3.84 (3.80-5.40) m/uL Hgb 11.9 (11.4-16.0) gm/dL Hct 35.4 (34.0-46.0) % Plt Count 214 (150-450) k/uL Comprehensive Metabolic Panel 08/10/20 08/11/20 Range/Units 11:33 09:20 Sodium 143 143 (137-145) mmol/L Potassium 3.7 3.4 L (3.5-5.1) mmol/L Chloride 104 105 (98-107) mmol/L Carbon Dioxide 31 H 30 (22-30) mmol/L BUN 39 H 29 H (7-17) mg/dL Creatinine 1.86 H 1.47 H (0.52-1.04) mg/dL Glucose 132 H 153 H (74-99) mg/dL Calcium 9.2 9.1 (8.4-10.2) mg/dL AST 17 (14-36) U/L ALT 12 (4-34) U/L Alkaline Phosphatase 88 (38-126) U/L Total Protein 6.6 (6.3-8.2) g/dL Albumin 3.9 (3.5-5.0) g/dL Current Medications Generic Name Dose Route Start Last Admin Trade Name Freq PRN Reason Stop Dose Admin Allopurinol 100 mg 08/11/20 09:00 08/11/20 09:05 Allopurinol 100 Mg Tab PO 100 mg DAILY [facility]ILL Administration Amlodipine Besylate 5 mg 08/11/20 09:00 08/11/20 09:05 Amlodipine 5 Mg Tab PO 5 mg DAILY [facility] Administration Atorvastatin Calcium 20 mg 08/11/20 09:00 08/11/20 09:05 Atorvastatin 20 Mg Tab PO 20 mg DAILY [facility] Administration Calcitriol 0.25 mcg 08/16/20 09:00 Calcitriol 0.25 Mcg Cap PO SINCLAIR [facility] Calcium Carbonate/Glycine 500 mg 08/11/20 09:00 08/11/20 09:05 Calcium Carbonate 500 Mg Chewable PO 500 mg DAILY [facility] Administration Carvedilol 25 mg 08/10/20 17:30 08/11/20 09:05 Carvedilol 12.5 Mg Tab PO 25 mg BID-W/MEALS [facility] Administration Ergocalciferol 1,250 mcg 08/23/20 09:00 Ergocalciferol 1,250 Mcg (50,000 Iu) Capsule PO [id number] [facility] Ferrous Sulfate 325 mg 08/11/20 09:00 08/11/20 09:05 Ferrous Sulfate 325 Mg Tab PO 325 mg DAILY [facility] Administration Fluticasone Propionate 2 spray 08/11/20 09:00 08/11/20 09:06 Fluticasone 50mcg/[place] Nasal 16gm EA NOSTRIL 2 spray DAILY [facility] Administration Levothyroxine Sodium 112 mcg 08/11/20 06:30 08/11/20 05:32 Levothyroxine 112 Mcg Tab PO 112 mcg 0630 [facility] Administration Linagliptin 5 mg 08/11/20 09:00 08/11/20 09:06 Linagliptin 5 Mg Tablet PO 5 mg DAILY [facility] Administration Losartan Potassium 50 mg 08/11/20 09:00 08/11/20 09:05 Losartan 50 Mg Tab PO 50 mg DAILY [facility] Administration Nitroglycerin 0.4 mg 08/10/20 12:43 Nitroglycerin Sl Tabs 0.4 Mg Tab SUBLINGUAL Q5M PRN Chest Pain Pantoprazole Sodium 40 mg 08/10/20 17:30 08/11/20 09:05 Pantoprazole 40 Mg Tablet PO 40 mg AC-BID [facility] Administration Potassium Chloride 20 meq 08/11/20 09:00 08/11/20 09:05 Potassium Chloride Er 20 Meq Tab.Er PO 20 meq DAILY [facility] Administration Intake and Output 08/10/20 08/11/20 08/11/20 22:59 06:59 14:59 Intake Total 118 118 Balance 118 118 Intake: Oral 118 118 Other: Voiding Method Toilet Toilet # Voids 1 2 Weight 92.533 kg 08/10/20 11:33 08/11/20 09:20
[2020-08-11 11:59] LABS: Glucose,Whole Blood 134 mg/dL (75-99)
[2020-08-11] MEDS ORDERED: POTASSIUM CHLORIDE ER 20 MEQ TAB.ER PO STA (12:55)
--- NOTE | 2020-08-11 17:10 | P.DS ---
Providers Date of admission: 08/10/20 12:44 Expected date of discharge: 08/11/20 Attending physician: Keke Cowan Consults: 08/10/20 12:44 Consult Physician Urgent Consulting Provider: Raul Bates Consult Reason/Comments: chest pain Do you want consulting provider notified?: Yes Primary care physician: Shashi Nance MD Hospital Course: Final diagnosis -Chest pain: ruled out acute coronary syndromes. 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 -Hypertension -Hyperlipidemia -hyperthyroidism Discharge disposition Patient is being discharged in a stable condition with guarded prognosis to home. Patient will follow-up with Dr. Shashi Nance upon discharge. Patient also instructed to follow-up with cardiology Dr. Bates in the outpatient setting. She was started on amlodipine and will continue along with Protonix in the outpatient setting. Total time taken is greater than 35 minutes. 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 Patient chest pain is too stressed and in severity nonradiating not associated with diaphoresis, aphasia lightheadedness. Patient just pain is nonpleuritic constant. Patient occasionally do get this pain after eating. Patient denied any previous history of the coronary artery disease. Does have history of hyperlipidemia not a smoker denied any history of diabetes mellitus does have hypertension does have chronic kidney disease stage III. Doesn't have any history of congestive heart failure patient was on Bumex during her previous hospitalization this was discontinued because of her acute renal failure her present creatinine is similar to her previous aspiration but higher than usual her baseline creatinine is around 1.4. 08/11/2020 Patient is seen and evaluated and follow-up and was evaluated by cardiology. Patient recently underwent stress test which was negative and patient will follow-up outpatient with Dr Bates. Patient also follows with nephrology Dr. Naranjo in the outpatient setting for kidney disease and instructed to follow-up with recommended repeat labs in a few days to monitor kidney functions. She was started on Norvasc and Bumex was discontinued. Patient instructed to monitor blood pressure closely and keep a diary for blood pressure readings for primary care follow-up along with cardiology. Currently no reports of chest pain, worsening shortness of breath, or palpitations. Patient is afebrile. No reports of nausea or vomiting and patient is tolerating diet. She will be discharged home today. On exam vital signs are stable. Cardio S1, S2 are muffled. Respiratory shows diminished breath sounds at the bases with no wheezing or rhonchi noted. Abdomen is soft and nontender. Nervous system shows no focal deficits. Please refer to medication reconciliation sheet for a list of medications. Patient Condition at Discharge: Fair Plan - Discharge Summary Discharge Rx Participant: No New Discharge Prescriptions: New amLODIPine [Norvasc] 5 mg PO DAILY 30 Days #30 tab Continue Losartan [Cozaar] 50 mg PO DAILY Levothyroxine Sodium [Synthroid] 112 mcg PO DAILY Ergocalciferol (Vitamin D2) [Vitamin D2] 50,000 unit PO [id number] Calcium Carbonate [Calcium] 600 mg PO DAILY Ferrous Sulfate [Iron (65 MG Elemental)] 325 mg PO DAILY sitaGLIPtin [Januvia] 50 mg PO DAILY Omeprazole [PriLOSEC] 20 mg PO AC-BID calcitrioL [Calcitriol] 0.25 mcg PO SINCLAIR Carvedilol [Coreg] 25 mg PO BID allopurinoL [Zyloprim] 100 mg PO DAILY Atorvastatin Calcium [Lipitor] 20 mg PO DAILY Triamcinolone Acetonide [Triamcinolone Acetonide 0.055MG Nasal] 2 spray EA NOSTRIL DAILY Discontinued Potassium Chloride [Klor-Con 20] 20 meq PO DAILY Bumetanide [BUMEX] 2 mg PO TID Discharge Medication List Calcium Carbonate [Calcium] 600 mg PO DAILY 07/19/17 [History] Ergocalciferol (Vitamin D2) [Vitamin D2] 50,000 unit PO [id number] 07/19/17 [History] Ferrous Sulfate [Iron (65 MG Elemental)] 325 mg PO DAILY 07/19/17 [History] Levothyroxine Sodium [Synthroid] 112 mcg PO DAILY 07/19/17 [History] Losartan [Cozaar] 50 mg PO DAILY 07/19/17 [History] Atorvastatin Calcium [Lipitor] 20 mg PO DAILY 08/10/20 [History] Carvedilol [Coreg] 25 mg PO BID 08/10/20 [History] Omeprazole [PriLOSEC] 20 mg PO AC-BID 08/10/20 [History] Triamcinolone Acetonide [Triamcinolone Acetonide 0.055MG Nasal] 2 spray EA NOSTRIL DAILY 08/10/20 [History] allopurinoL [Zyloprim] 100 mg PO DAILY 08/10/20 [History] calcitrioL [Calcitriol] 0.25 mcg PO SINCLAIR 08/10/20 [History] sitaGLIPtin [Januvia] 50 mg PO DAILY 08/10/20 [History] amLODIPine [Norvasc] 5 mg PO DAILY 30 Days #30 tab 08/11/20 [Rx] Follow up Appointment(s)/Referral(s): Raul Bates MD [STAFF PHYSICIAN] - 2 Weeks (left message for the office and asked them to call you.) Shashi Nance MD [Primary Care Provider] - 08/13/20 1:00 pm Ambulatory/Diagnostic Orders: Basic Metabolic Panel [LAB.AMB] Time Frame: 3 Days, Location: None Selected Patient Instructions/Handouts: Chest Pain (DC), Chronic Hypertension (DC) Activity/Diet/Wound Care/Special Instructions: Activity limited until follow-up Follow-up with primary care provider upon discharge Cardiology outpatient Follow-up with nephrology outpatient Recommend repeat labs in 2-3 days Continue current diet keep A diary of blood pressure readings Discharge Disposition: HOME SELF-CARE
[2020-08-23] MEDS ORDERED: ERGOCALCIFEROL 1,250 MCG (50,000 IU) CAPSULE PO SCH (09:00)
== END 2020-08-11 14:47 | disposition home or self-care (01) ==
LOC: EC 10:58 → 6NMEDSUR 12:44
PROVIDERS: ADMIT Internal Medicine; ATTEND Internal Medicine
DX: R07.89 Other chest pain (principal); K21.9 Gastro-esophageal reflux disease without esophagitis; I13.10 Hypertensive heart and chronic kidney disease without heart failure, with stage 1 through stage 4 chronic kidney disease, or unspecified chronic kidney disease; N18.30 Chronic kidney disease, stage 3 unspecified; E11.22 Type 2 diabetes mellitus with diabetic chronic kidney disease; E78.5 Hyperlipidemia, unspecified; M19.90 Unspecified osteoarthritis, unspecified site; H26.9 Unspecified cataract; E05.90 Thyrotoxicosis, unspecified without thyrotoxic crisis or storm; Z79.890 Hormone replacement therapy; Z79.84 Long term (current) use of oral hypoglycemic drugs; Z79.899 Other long term (current) drug therapy; Z88.1 Allergy status to other antibiotic agents; Z88.6 Allergy status to analgesic agent; Z88.2 Allergy status to sulfonamides; Z91.048 Other nonmedicinal substance allergy status; Z90.49 Acquired absence of other specified parts of digestive tract; Z98.51 Tubal ligation status; Z98.890 Other specified postprocedural states; Z82.49 Family history of ischemic heart disease and other diseases of the circulatory system
CPT/HCPCS: 93005 ×2; 99285; 36415; 94760; 83880; 80061; 80053; 80048; 84484; 85025; 85610; 85730; 71045; G0378 ×2

== ENCOUNTER 2022-02-22 06:48 | Day surgery (SDC) | payer MEDICARE ==
[2022-02-17 12:24] VITALS: BMI 42.7
[~2022-02-22 06:48] MED LIST changes: -MIDAZOLAM 2 MG/2 ML VIAL IV PRN; -Pre Op ABX Message 1 EACH MISC MISCELLANE ONE
[2022-02-22] MEDS ORDERED: LIDOCAINE 1% (10MG/ML) FOR IV START INTRADERMA ONE (07:28)
[2022-02-22] MEDS ORDERED: LIDOCAINE 2% INJ 20 MG/ML (2 ML VIAL) ONE (07:32)
[2022-02-22] MEDS ORDERED: PROPOFOL 10 MG/ML 20 ML VIAL IV ONE (07:32)
[2022-02-22 07:34] VITALS: TEMP 96.9
[2022-02-22 07:35] LABS: Glucose,Whole Blood 120 mg/dL (70-110)
--- NOTE | 2022-02-22 07:37 | P.GSHP ---
History of Present Illness H&P Date: 02/22/22 Chief Complaint: Rectal bleeding, dysphagia 71-year-old female here today for upper and lower endoscopy. Patient with complaints of epigastric pain and dysphagia. Patient was on antiacids with decent refill of her symptoms however because of her kidney dysfunction she stop ped taking those. Patient also complains of intermittent rectal bleeding and some perianal irritation. History of polyps. Past Medical History Past Medical History: Diabetes Mellitus, GERD/Reflux, Hyperlipidemia, Hypertension, Osteoarthritis (OA), Thyroid Disorder Additional Past Medical History / Comment(s): STAGE III KIDNEY FAILURE. Rectal bleeding off and on for 6 months, alternating diarrhea and constipation. Bilateral leg swelling. History of Any Multi-Drug Resistant Organisms: None Reported Past Surgical History: Cholecystectomy, Orthopedic Surgery, Tubal Ligation Additional Past Surgical History / Comment(s): CARPAL TUNNEL RELEASE, SINUS SURGERY, PARATHYROID SURGERY, bilateral cataracts removed with lens implants, colonoscopy with polypectomy X3, benign. Past Anesthesia/Blood Transfusion Reactions: No Reported Reaction Past Psychological History: No Psychological Hx Reported Smoking Status: Never smoker Past Alcohol Use History: None Reported Past Drug Use History: None Reported - Past Family History Sister(s) Family Medical History: Deep Vein Thrombosis (DVT) Medications and Allergies Home Medications Medication Instructions Recorded Confirmed Type Calcium Carbonate [Calcium] 600 mg PO DAILY 07/19/17 02/22/22 History Ergocalciferol (Vitamin D2) 50,000 unit PO [id number] 07/19/17 02/22/22 History [Vitamin D2] Ferrous Sulfate [Iron (65 MG 325 mg PO DAILY 07/19/17 02/22/22 History Elemental)] Levothyroxine Sodium [Synthroid] 112 mcg PO QAM 07/19/17 02/22/22 History allopurinoL [Zyloprim] 100 mg PO DAILY 08/10/20 02/22/22 History calcitrioL [Calcitriol] 0.25 mcg PO DAILY 08/10/20 02/22/22 History Atorvastatin [Lipitor] 40 mg PO DAILY 02/17/22 02/22/22 History Furosemide [Lasix] 40 mg PO TID 02/17/22 02/22/22 History NIFEdipine [Adalat CC] 60 mg PO PC-LUNCH 02/17/22 02/22/22 History Nasal [place] (Otc) 2 sprays NASAL DAILY 02/17/22 02/22/22 History Potassium Chloride [K-Tab ER] 20 meq PO DAILY 02/17/22 02/22/22 History Repaglinide 1 mg PO BID 02/17/22 02/22/22 History Valsartan 160 mg PO BID 02/17/22 02/22/22 History carvediloL 25 mg PO BID 02/17/22 02/22/22 History Allergies Allergy/AdvReac Type Severity Reaction Status Date / Time adhesive Allergy RED SKIN Verified 02/22/22 07:21 IF ON TO LONG indomethacin [From Indocin] Allergy TROUBLE Verified 02/22/22 07:21 BREATHING" levofloxacin Allergy MUSCLE PAIN Verified 02/22/22 07:21 Sulfa (Sulfonamide Allergy Rash/Hives Verified 02/22/22 07:21 Antibiotics) Surgical - Exam Vital Signs Temp Pulse Resp BP Pulse Ox 96.9 F L 67 18 169/74 96 02/22/22 07:33 02/22/22 07:33 02/22/22 07:33 02/22/22 07:33 02/22/22 07:33 Physical exam: General: Well-developed, well-nourished HEENT: Normocephalic, sclerae nonicteric Abdomen: Nontender, nondistended Extremities: No edema Neuro: Alert and oriented Results - Labs Abnormal Lab Results - Last 24 Hours (Table) 02/22/22 Range/Units 07:31 POC Glucose (mg/dL) 120 H (70-110) mg/dL Assessment and Plan (1) Rectal bleeding Narrative/Plan: Will proceed with upper and lower endoscopy Current Visit: Yes Status: Acute Code(s): K62.5 - HEMORRHAGE OF ANUS AND RECTUM SNOMED Code(s): 04866565
--- NOTE | 2022-02-22 07:58 | P.PCN ---
Date of Procedure: 02/22/22 Procedure(s) Performed: PREOPERATIVE DIAGNOSIS: GERD, dysphagia, rectal bleeding, history of colon polyps POSTOPERATIVE DIAGNOSIS: Gastritis with erosions, hypertrophied anal papilla PROCEDURE: 1. EGD with biopsy 2. Colonoscopy with snare polypectomy [place] [facility] [place]: Wayne Jensen M.D. SPECIMENS: Antrum ENDOSCOPIC PROCEDURE: The patient was on the endoscopy table in the left decubitus position. The Olympus gastroscope was inserted into the oropharynx and passed under direct visualization to the region of the third portion of the duodenum. From that point the scope was slowly withdrawn inspecting all surfaces carefully. There were no neoplastic inflammatory or polypoid lesions throughout the duodenum. The pylorus was widely patent. The stomach was carefully inspected. There was gastritis involving primarily the body antrum and pylorus. There were multiple small erosions present with some old blood present in the lumen of the stomach. No large ulcers were noted. A biopsy of the antrum took place to rule out H. pylori. Retroflexion revealed a normal hiatus. The esophagus was then carefully examined. There were no neoplastic inflammatory or polypoid lesions throughout the visualized esophagus. The patient was kept on the endoscopy table in the left decubitus position. The Olympus colonoscope was inserted into the anus and passed under direct visualization to the base of the cecum. The appendiceal orifice was visualized. From that point the scope was slowly withdrawn inspecting all surfaces carefully. There were no neoplastic inflammatory or polypoid lesions throughout the cecum, ascending, transverse, descending, sigmoid and rectum. There was no visible diverticulosis noted. Digital rectal examination w revealed a hypertrophied anal papilla. The patient was complaining of a mass there. This was likely was causing the symptoms. This was removed using the snare with cautery technique. The patient was taken to the recovery room in stable condition per anesthesia guidelines. RECOMMENDATIONS: Await biopsy results. Consider resuming antiacid therapy in the form of Pepcid. Recommend repeat upper and lower endoscopy 5 years
[2022-02-22 08:18] VITALS: BP 163/82; PULSE 63; RESP 18
== END 2022-02-22 08:37 | disposition home or self-care (01) ==
LOC: ORWHC2ENDO 06:48
PROVIDERS: ATTEND Surgery
DX: K29.50 Unspecified chronic gastritis without bleeding (principal); K62.0 Anal polyp; K21.9 Gastro-esophageal reflux disease without esophagitis; Z86.010 Personal history of colon polyps; R13.14 Dysphagia, pharyngoesophageal phase; E11.22 Type 2 diabetes mellitus with diabetic chronic kidney disease; I12.9 Hypertensive chronic kidney disease with stage 1 through stage 4 chronic kidney disease, or unspecified chronic kidney disease; N18.30 Chronic kidney disease, stage 3 unspecified; E78.5 Hyperlipidemia, unspecified; M19.90 Unspecified osteoarthritis, unspecified site; E07.9 Disorder of thyroid, unspecified; Z90.49 Acquired absence of other specified parts of digestive tract; Z98.51 Tubal ligation status; Z98.890 Other specified postprocedural states; Z82.49 Family history of ischemic heart disease and other diseases of the circulatory system; Z88.2 Allergy status to sulfonamides; Z91.041 Radiographic dye allergy status
CPT/HCPCS: 88305; 45385; 43239; J2704; J2001

== ENCOUNTER 2022-02-23 10:56 | Emergency (ER) | payer MEDICARE ==
[2022-02-23 11:09] VITALS: RESP 16
[2022-02-23] MEDS ORDERED: PANTOPRAZOLE 40 MG/10 ML VIAL IVP STA (12:19)
--- NOTE | 2022-02-23 12:19 | ED ---
General Adult HPI - General Chief complaint: GI Bleed Stated complaint: rectal bleeding Time Seen by Provider: 02/23/22 12:03 Source: patient Mode of arrival: ambulatory Limitations: no limitations - History of Present Illness Initial comments: Dictation was produced using [employer] dictation software. please excuse any grammatical, word or spelling errors. Chief Complaint: 71-year-old febrile presents with bright red blood per rectum History of Present Illness: 71-year-old female presents with bright red blood per rectum today. Yesterday patient had upper and lower endoscopy. Discussed procedures performed by general surgeon, Dr. Mckinnon. Patient was told that she had a biopsy of her stomach lining and excision of some sort of mass around her rectum. Patient has any pain. No lightheadedness. The ROS documented in this emergency department record has been reviewed and confirmed by me. Those systems with pertinent positive or negative responses have been documented in the HPI. All other systems are other negative and/or noncontributory. PHYSICAL EXAM: General Impression: Alert and oriented x3, not in acute distress HEENT: Normocephalic atraumatic, extra-ocular movements intact, pupils equal and reactive to light bilaterally, mucous membranes moist. Cardiovascular: Heart regular rate and rhythm Chest: Able to complete full sentences, no retractions, no tachypnea Abdomen: abdomen soft, non-tender, non-distended, no organomegaly Musculoskeletal: Pulses present and equal in all extremities, no peripheral neri ma Motor: no focal deficits noted Neurological: CN II-XII grossly intact, no focal motor or sensory deficits noted Skin: Intact with no visualized rashes Psych: Normal affect and mood Rectal exam: No gross bleeding ED course: 71-year-old female presents to the emergency department for bright red blood per rectum. She had upper and lower endoscopy performed yesterday by Dr. Mckinnon. Chart review performed shows that patient had EGD with biopsy and colonoscopy with snare polypectomy. Vital signs upon arrival are within acceptable limits. Lab return evaluation obtained. CBC, coag panel, metabolic panel is within acceptable limits. Stool occult blood is positive. Patient observed in [facility] for approximately 2 hours. She is reevaluated at bedside at 1:15 PM finally stable medical condition. Reevaluated at bedside 1:45 PM found to be stable medical condition. An temp was made to contact Dr. Boutt performing procedure however he did not respond. Patient denied any further bleeding and abdominal pain while in the emergency room. This point patient stable for discharge. She is not high risk. She has normal blood work. Patient be discharged with strict return precautions she is advised to contact Dr. Jensen for outpatient appointment. - Related Data Home Medications Medication Instructions Recorded Confirmed Calcium Carbonate [Calcium] 600 mg PO DAILY 07/19/17 02/22/22 Ergocalciferol (Vitamin D2) 50,000 unit PO [id number] 07/19/17 02/22/22 [Vitamin D2] Ferrous Sulfate [Iron (65 MG 325 mg PO DAILY 07/19/17 02/22/22 Elemental)] Levothyroxine Sodium [Synthroid] 112 mcg PO QAM 07/19/17 02/22/22 allopurinoL [Zyloprim] 100 mg PO DAILY 08/10/20 02/22/22 calcitrioL [Calcitriol] 0.25 mcg PO DAILY 08/10/20 02/22/22 Atorvastatin [Lipitor] 40 mg PO DAILY 02/17/22 02/22/22 Furosemide [Lasix] 40 mg PO TID 02/17/22 02/22/22 NIFEdipine [Adalat CC] 60 mg PO PC-LUNCH 02/17/22 02/22/22 Nasal [place] (Otc) 2 sprays NASAL DAILY 02/17/22 02/22/22 Potassium Chloride [K-Tab ER] 20 meq PO DAILY 02/17/22 02/22/22 Repaglinide 1 mg PO BID 02/17/22 02/22/22 Valsartan 160 mg PO BID 02/17/22 02/22/22 carvediloL 25 mg PO BID 02/17/22 02/22/22 Allergies Allergy/AdvReac Type Severity Reaction Status Date / Time adhesive Allergy RED SKIN Verified 02/23/22 11:09 IF ON TO LONG indomethacin [From Indocin] Allergy TROUBLE Verified 02/23/22 11:09 BREATHING" levofloxacin Allergy MUSCLE PAIN Verified 02/23/22 11:09 Sulfa (Sulfonamide Allergy Rash/Hives Verified 02/23/22 11:09 Antibiotics) Review of Systems ROS Statement: Those systems with pertinent positive or pertinent negative responses have been documented in the HPI. ROS Other: All systems not noted in ROS Statement are negative. Past Medical History Past Medical History: Diabetes Mellitus, GERD/Reflux, Hyperlipidemia, Hypertension, Osteoarthritis (OA), Thyroid Disorder Additional Past Medical History / Comment(s): STAGE III KIDNEY FAILURE. Rectal bleeding off and on for 6 months, alternating diarrhea and constipation. Bilateral leg swelling. History of Any Multi-Drug Resistant Organisms: None Reported Past Surgical History: Cholecystectomy, Orthopedic Surgery, Tubal Ligation Additional Past Surgical History / Comment(s): CARPAL TUNNEL RELEASE, SINUS SURGERY, PARATHYROID SURGERY, bilateral cataracts removed with lens implants, colonoscopy with polypectomy X3, benign. Past Anesthesia/Blood Transfusion Reactions: No Reported Reaction Past Psychological History: No Psychological Hx Reported Smoking Status: Never smoker Past Alcohol Use History: None Reported Past Drug Use History: None Reported - Past Family History Sister(s) Family Medical History: Deep Vein Thrombosis (DVT) General Exam Limitations: no limitations Course Vital Signs 02/23/22 11:05 Temperature 98.1 F Pulse Rate 58 L Respiratory 16 Rate Blood Pressure 143/72 O2 Sat by Pulse 96 Oximetry Medical Decision Making - Lab Data Result diagrams: 02/23/22 12:27 02/23/22 12:27 Lab Results 02/23/22 02/23/22 02/23/22 Range/Units 12:11 12:20 12:27 WBC 10.2 (3.8-10.6) k/uL RBC 4.42 (3.80-5.40) m/uL Hgb 13.3 (11.4-16.0) gm/dL Hct 41.5 (34.0-46.0) % MCV 93.9 (80.0-100.0) fL MCH 30.2 (25.0-35.0) pg MCHC 32.1 (31.0-37.0) g/dL RDW 13.3 (11.5-15.5) % Plt Count 210 (150-450) k/uL MPV 8.3 Neutrophils % 73 % Lymphocytes % 16 % Monocytes % 6 % Eosinophils % 3 % Basophils % 1 % Neutrophils # 7.5 (1.3-7.7) k/uL Lymphocytes # 1.6 (1.0-4.8) k/uL Monocytes # 0.6 (0-1.0) k/uL Eosinophils # 0.3 (0-0.7) k/uL Basophils # 0.1 (0-0.2) k/uL PT (9.0-12.0) sec INR (<1.2) APTT (22.0-30.0) sec Sodium (137-145) mmol/L Potassium (3.5-5.1) mmol/L Chloride (98-107) mmol/L Carbon Dioxide (22-30) mmol/L Anion Gap mmol/L BUN (7-17) mg/dL Creatinine (0.52-1.04) mg/dL Est GFR (CKD-EPI)AfAm (>60 ml/min/1.73 sqM) Est GFR (CKD-EPI)NonAf (>60 ml/min/1.73 sqM) Glucose (74-99) mg/dL Calcium (8.4-10.2) mg/dL Total Bilirubin (0.2-1.3) mg/dL AST (14-36) U/L ALT (4-34) U/L Alkaline Phosphatase (38-126) U/L Total Protein (6.3-8.2) g/dL Albumin (3.5-5.0) g/dL Stool Occult Blood Positive H (Negative) Blood Type Recheck No Previous Record Bld Type Recheck Status CABO Indicated Spec Expiration Date 02/26/2022 - 232602/23/22 02/23/22 Range/Units 12:27 12:27 WBC (3.8-10.6) k/uL RBC (3.80-5.40) m/uL Hgb (11.4-16.0) gm/dL Hct (34.0-46.0) % MCV (80.0-100.0) fL MCH (25.0-35.0) pg MCHC (31.0-37.0) g/dL RDW (11.5-15.5) % Plt Count (150-450) k/uL MPV Neutrophils % % Lymphocytes % % Monocytes % % Eosinophils % % Basophils % % Neutrophils # (1.3-7.7) k/uL Lymphocytes # (1.0-4.8) k/uL Monocytes # (0-1.0) k/uL Eosinophils # (0-0.7) k/uL Basophils # (0-0.2) k/uL PT 10.6 (9.0-12.0) sec INR 1.0 (<1.2) APTT 26.2 (22.0-30.0) sec Sodium 143 (137-145) mmol/L Potassium 3.3 L (3.5-5.1) mmol/L Chloride 103 (98-107) mmol/L Carbon Dioxide 25 (22-30) mmol/L Anion Gap 15 mmol/L BUN 40 H (7-17) mg/dL Creatinine 1.63 H (0.52-1.04) mg/dL Est GFR (CKD-EPI)AfAm 36 (>60 ml/min/1.73 sqM) Est GFR (CKD-EPI)NonAf 31 (>60 ml/min/1.73 sqM) Glucose 154 H (74-99) mg/dL Calcium 9.4 (8.4-10.2) mg/dL Total Bilirubin 0.5 (0.2-1.3) mg/dL AST 25 (14-36) U/L ALT 25 (4-34) U/L Alkaline Phosphatase 80 (38-126) U/L Total Protein 6.9 (6.3-8.2) g/dL Albumin 4.3 (3.5-5.0) g/dL Stool Occult Blood (Negative) Blood Type Recheck Bld Type Recheck Status Spec Expiration Date Disposition Clinical Impression: GI bleed Disposition: HOME SELF-CARE Condition: Good Instructions (If sedation given, give patient instructions): Gastrointestinal Bleeding (ED) Is patient prescribed a controlled substance at d/c from ED?: No Referrals: Wayne Jensen MD [Family Provider] - 1-2 days Time of Disposition: 13:44
[2022-02-23 12:36] LABS: Basophils # (A) 0.1 k/uL (0-0.2); Basophils % (A) 1 %; Eosinophils # (A) 0.3 k/uL (0-0.7); Eosinophils % (A) 3 %; HCT 41.5 % (34.0-46.0); HGB 13.3 gm/dL (11.4-16.0); Lymphocytes # (A) 1.6 k/uL (1.0-4.8); Lymphocytes % (A) 16 %; MCH 30.2 pg (25.0-35.0); MCHC 32.1 g/dL (31.0-37.0); MCV 93.9 fL (80.0-100.0); Mean Platelet Volume 8.3; Monocytes # (A) 0.6 k/uL (0-1.0); Monocytes % (A) 6 %; Neutrophils # (A) 7.5 k/uL (1.3-7.7); Neutrophils % (A) 73 %; Platelet Count 210 k/uL (150-450); RBC 4.42 m/uL (3.80-5.40); RDW 13.3 % (11.5-15.5); WBC 10.2 k/uL (3.8-10.6)
[2022-02-23 12:47] LABS: Partial Thromboplastin Time 26.2 sec (22.0-30.0); Prothrombin Time 10.6 sec (9.0-12.0)
[2022-02-23 13:05] LABS: Albumin 4.3 g/dL (3.5-5.0); Calcium 9.4 mg/dL (8.4-10.2); Potassium 3.3 mmol/L (3.5-5.1); Total Bilirubin 0.5 mg/dL (0.2-1.3); Total Protein 6.9 g/dL (6.3-8.2)
[2022-02-23 14:05] VITALS: BP 139/79; PULSE 78; TEMP 98.2
== END 2022-02-23 14:04 | disposition home or self-care (01) ==
LOC: EC 10:56
DX: K92.2 Gastrointestinal hemorrhage, unspecified (principal); E11.9 Type 2 diabetes mellitus without complications; K21.9 Gastro-esophageal reflux disease without esophagitis; E78.5 Hyperlipidemia, unspecified; I10 Essential (primary) hypertension; E07.9 Disorder of thyroid, unspecified; Z88.8 Allergy status to other drugs, medicaments and biological substances; Z88.1 Allergy status to other antibiotic agents; Z88.2 Allergy status to sulfonamides; Z91.09 Other allergy status, other than to drugs and biological substances; Z90.49 Acquired absence of other specified parts of digestive tract; Z79.890 Hormone replacement therapy
CPT/HCPCS: 36415; 93005; 86900; 86901; 80053; 85025; 85610; 85730; 86850; 82272; 99283; 96374; C9113

== ENCOUNTER → 2023-12-04 | Outpatient (CLI) | payer MEDICARE ==
[2023-12-04 15:03] LABS: Basophils # (A) 0.08 X 10*3/uL (0.00-0.10); Eosinophils # (A) 0.27 X 10*3/uL (0.04-0.35); Eosinophils % (A) 3.3 %; HCT 41.6 % (37.2-46.3); HGB 12.8 g/dL (12.0-15.0); Lymphocytes # (A) 2.06 X 10*3/uL (0.90-5.00); Lymphocytes % (A) 25.5 %; MCH 30.4 pg (27.0-32.0); MCHC 30.8 g/dL (32.0-37.0); MCV 98.8 FL (80.0-97.0); Mean Platelet Volume 11.3 FL (9.5-12.2); Monocytes # (A) 0.57 X 10*3/uL (0.20-1.00); Monocytes % (A) 7.1 %; NRBC Per 100 WBC 0 X 10*3/uL (0.00-0.01); Neutrophils # (A) 5.08 X 10*3/uL (1.80-7.70); Neutrophils % (A) 62.9 %; Platelet Count 225 X 10*3/uL (140-440); RBC 4.21 X 10*6/uL (4.10-5.20); RDW 13.5 % (11.5-14.5); WBC 8.08 X 10*3/uL (4.50-10.00)
[2023-12-04 15:47] LABS: % Iron Saturation 17.88 (12.00-45.00); Albumin 4.4 g/dL (3.8-4.9); BUN/Creat Ratio 23.44 Ratio (12.00-20.00); Blood Urea Nitrogen 37.5 mg/dL (9.0-27.0); Calcium 10.3 mg/dL (8.7-10.3); Carbon Dioxide 24.1 mmol/L (21.6-31.8); Chloride 106 mmol/L (96-109); Glucose 164 mg/dL (70-110); Iron 54 UG/DL (50-170); Magnesium 2.2 mg/dL (1.5-2.4); Sodium 145 mmol/L (135-145); Total Iron Binding Capacity 302 UG/DL (228-460); Uric Acid 6.4 mg/dL (2.9-7.7)
== END | disposition home or self-care (01) ==
LOC: LABWHC1 11:00
PROVIDERS: ATTEND Internal Medicine Nephrology
DX: E55.9 Vitamin D deficiency, unspecified (principal); M10.9 Gout, unspecified; N25.81 Secondary hyperparathyroidism of renal origin; N39.0 Urinary tract infection, site not specified; D63.1 Anemia in chronic kidney disease; N18.4 Chronic kidney disease, stage 4 (severe); R80.9 Proteinuria, unspecified
CPT/HCPCS: 36415; 80048; 82040; 82306; 82728; 83540; 83550; 83735; 83970; 84100; 84550; 85025

== ENCOUNTER → 2024-01-23 | Outpatient (CLI) | payer MEDICARE ==
--- NOTE | 2024-02-21 10:48 | US ---
Report Patient: Jenelle Gresham Ordering Physician: Unknown, Unknown ID: [id number] Phone, Pager: Phone: N/A Pager: N/A : [phone] Age/Gender: 73Y, F Primary Location: N/A Procedure: US RENALS AND BLADDER Study Date: 01/23/2024 10:06:00 AM EXAMINATION TYPE: US kidneys/renal and bladder DATE OF EXAM: 01/27/2024 COMPARISON: 12/24/2014 CLINICAL INDICATION: 73 year-old female with EKG Technique: Multiple sonographic images of the kidneys and bladder are obtained. FINDINGS: The right and left kidneys measure 10.1 and 11.7 cm, respectively, without hydronephrosis. Some mild perinephric edema is noted and can be seen with chronic kidney disease. No hydronephrosis on either s farzana. There is bilateral renal cortical thinning. Lower pole renal cortical cyst on the right measures 1.8 cm. At the midpole, measures 1.3 cm. Additional midpole cyst on the left measures 2.5 cm. No gross abnormality of the partially distended bladder. Only the right ureteral jet is seen during t he course of the exam. IMPRESSION: 1. Changes of chronic medical renal disease. 2. No hydronephrosis. 3. A few benign renal cortical cysts measuring up to 2.5 cm.
== END | disposition home or self-care (01) ==
LOC: RADUSWWP 16:04
PROVIDERS: ATTEND Internal Medicine Nephrology
DX: N18.4 Chronic kidney disease, stage 4 (severe)
CPT/HCPCS: 76770

== ENCOUNTER → 2024-04-11 | Outpatient (CLI) | payer MEDICARE ==
[2024-04-11 15:23] LABS: ALT 31 U/L (8-44); AST 24 U/L (13-35); Albumin 4.3 g/dL (3.8-4.9); Albumin/Globulin Ratio 1.79 Ratio (1.60-3.17); Alkaline Phosphatase 81 U/L (41-126); Blood Urea Nitrogen 60.6 mg/dL (9.0-27.0); Carbon Dioxide 24.7 mmol/L (21.6-31.8); Chloride 108 mmol/L (96-109); Chol/HDL Ratio 2.69 Ratio; Globulin 2.4 g/dL (1.6-3.3); Glucose 156 mg/dL (70-110); Potassium 4.6 mmol/L (3.5-5.5); Sodium 144 mmol/L (135-145); T4, Free (Free Thyroxine) 1.31 ng/dL (0.80-1.80); Total Bilirubin 0.3 mg/dL (0.3-1.2); Total Protein 6.7 g/dL (6.2-8.2)
[2024-04-11 15:30] LABS: HCT 39.8 % (37.2-46.3); HGB 12.6 g/dL (12.0-15.0); MCH 30.5 pg (27.0-32.0); MCHC 31.7 g/dL (32.0-37.0); MCV 96.4 FL (80.0-97.0); Mean Platelet Volume 11.3 FL (9.5-12.2); NRBC Per 100 WBC 0 X 10*3/uL (0.00-0.01); Platelet Count 215 X 10*3/uL (140-440); RBC 4.13 X 10*6/uL (4.10-5.20); RDW 13.3 % (11.5-14.5); WBC 8.58 X 10*3/uL (4.50-10.00)
== END | disposition home or self-care (01) ==
LOC: LABWHC1 10:33
PROVIDERS: ATTEND Family Medicine
DX: E11.9 Type 2 diabetes mellitus without complications (principal); N18.9 Chronic kidney disease, unspecified; E03.9 Hypothyroidism, unspecified
CPT/HCPCS: 36415; 80053; 80061; 83036; 84439; 84443; 84481; 85027

== ENCOUNTER → 2024-05-23 | Outpatient (CLI) | payer MEDICARE ==
--- NOTE | 2024-05-27 18:24 | MM ---
Reason for Exam: Screening (asymptomatic). Last mammogram was performed 4 year(s) and 1 month(s) ago. Patient History: Menarche at age 12. First Full-Term at age 21. Postmenopausal. Risk Values: Nyla 5 year model risk: 1.6%. NCI Lifetime model risk: 3.7%. Prior Study Comparison: 04/26/2016 Bilateral Screening Mammogram, [facility]. 05/03/2018 Bilateral Screening Mammogram, [facility]. 04/10/2020 Bilateral Screening Mammogram, [facility]. Tissue Density: There are scattered areas of fibroglandular density. Findings: Analyzed By CAD. Chronic nodularity central right cc view. Benign bilateral oil cyst and vascular calcifications redemonstrated. There is no suspicious group of microcalcifications or new suspicious mass in either breast. Overall Assessment: Benign, BI-RAD 2 Management: Screening Mammogram of both breasts in 1 year. . Patient should continue monthly self-breast exams. A clinical breast exam by your physician is recommended on an annual basis. This exam should not preclude additional follow-up of suspicious palpable abnormalities. Note on Nyla scores and lifetime risk: 1. A Nyla score greater than 3% is considered moderate risk. If this is the case, consider specialist referral to assess eligibility for a risk reducing agent. 2. If overall lifetime risk for the development of breast cancer is 20% or higher, the patient may qualify for future screening with alternating mammogram and breast MRI. [facility], , 05/27/2024 6:21 PM. Electronically signed and approved by: Carlene Poon M.D. Radiologist
== END | disposition home or self-care (01) ==
LOC: RADMAMWWP 11:29
PROVIDERS: ATTEND Family Medicine
DX: Z12.31 Encounter for screening mammogram for malignant neoplasm of breast (principal); Z78.0 Asymptomatic menopausal state; R92.323 Mammographic fibroglandular density, bilateral breasts
CPT/HCPCS: 77063; 77067